=== PATIENT | female | born 1990 | race Caucasian/White ===

== ENCOUNTER 2025-01-17 17:01 | Outpatient (OUT) | payer OTHER, SELFPAY ==
--- NOTE | 2025-01-17 17:05 | US_ITS ---
The [address] [address] Patient Name: JUDAH CHO MRN: [id number] date: 1990 Sex: F Assigned Patient Location: US Current Patient Location: US Accession/Order Number: [id number] Exam Date: 01/17/2025 21:09 Report Date: 01/17/2025 21:12 At the request of: SHADE LERNER NP Procedure: US pelvis w/ transvaginal TRANSABDOMINAL AND TRANSVAGINAL PELVIC ULTRASOUND HISTORY: Lower abdominal pain for one week FINDINGS: The uterus measures 9.3 x 4.9 x 6.0 cm. No uterine lesion identified. The endometrium has a total combined thickness of 13mm. The RIGHT ovary measures 3.8 x 2.2 x 3.1 cm right ovary resistive index 0.45. LEFT ovary measures 4.7 x 3.3 x 3.5 cm left ovary resistive index of 0.51. Left ovary contains thin septated anechoic cysts that measure 4.4 x 2.3 x 2.8 cm. Bilateral ovarian blood flow identified. No free fluid identified. There is no adnexal mass identified. US/US pelvis w/ transvaginal IMPRESSION: 4.4 cm septated anechoic benign-appearing left ovarian cyst. Unremarkable right ovary uterus and endometrial complex. Impression dictated by: Sourav Catalan M.D.01/17/2025 9:12 PM Dictation Location: [place] [address] Electronically authenticated by: [id number] Y Date: 01/17/2025 21:12
== END 2025-01-17 17:02 | disposition home or self-care (01) ==
LOC: US 17:01
PROVIDERS: PCP Nurse Practitioner Family; Visit Provider Nurse Practitioner Family
DX: R10.30 Lower abdominal pain, unspecified (principal); R10.9 Unspecified abdominal pain; N83.202 Unspecified ovarian cyst, left side
CPT/HCPCS: 76830; 76856

== ENCOUNTER 2025-06-28 19:04 | Outpatient (REF) | payer OTHER, SELFPAY ==
--- OUTSIDE RECORDS SUMMARY | 2025-06-28 14:00 | XMS_ITS | Encounter Summary ---
Author Organization [facility] Address [address] [place] [address] Care Team Providers Care Head Banquet Waitress Name Role Phone Unavailable Primary Care Provider Unavailabl e Reason for Visit * Reason Comments Gynecologic Exam Encounter Details Date Type Department Care Team (Late st Contact Info) Description 06/28/2025 2:00 PM EDT Office Visit [facility] [address] [place] [phone] Audra Zepeda PA [address] [place] [address] Well woman exam with routine gynecological exam; PCOS (polycystic ovarian syndrome); Dysfunctional uterine bleeding Social History Tobacco Use Types Packs/Day Years Used Date Smoking Tobacco: Never Assessed Comments Unknown Sex and Gender Information Value Date Recorded Sex Assigned at Not on file Legal Sex Female 7:36 PM EDT Gender Identity Not on file Sexual Orientation Not on file documented as of this encounter Last Filed Vital Signs Vital Sign Reading Time Taken Comments Blood Pressure 122/76 06/28/2025 2:30 PM EDT Pulse - - Temperature - - Respiratory Rate - - Oxygen Saturation - - Inhaled Oxygen Concentration - - Weight 112 kg (247 lb 12.8 oz) 06/28/2025 2:30 P M EDT Height - - Body Mass Index - - documented in this encounter Progress Notes * ANDRES Solano - 06/28/2025 2:00 PM EDT Reason for Appointment: Patient ID: Ainsley Chavez is a 35 y.o. female who presents for Gynecologic Exam Patient presents today for Annual Exam. MEDICATIONS Current Outpatient Medications Medication Instructions desogestrel-ethinyl estradiol (Apri) 0.15-30 MG-MCG tablet 1 tablet, Oral, Daily, Take 1 tablet by mouth daily ibuprofen 800 mg, As needed lansoprazole (PREVACID) 30 mg, Oral, Daily before breakfast norethindrone-ethinyl estradiol (11/29) 1-20 MG-MCG tablet 1 tablet, Oral, Daily ALLERGIES Allergies Allergen Reactions Ciprofloxacin Shortness of breath Other Reaction(s): Breathing control PROBLEMS Active Ambulatory Problems Diagnosis Date Noted Well woman exam with routine gynecological exam 06/28/2025 Resolved Ambulatory Problems Diagnosis Date Noted No Resolved Ambulatory Problems No Additional Past Medical History HISTORY PAST MEDICAL HISTORY SOCIAL HISTORY No past medical history on file. Social History Tobacco Use Smoking status: Not on file Smokeless tobacco: Not on file Substance Use Topics Alcohol use: Not on file Drug use: Not on file FAMILY HISTORY Family History Problem Relation Name Age of Onset Breast cancer Paternal Grandmother Diabetes Paternal Grandmother Brain cancer Paternal Grandfather Lung cancer Paternal Grandfather SURGICAL HISTORY Past Surgical History: Procedure Laterality Date MYRINGOTOMY W/ TUBES TONSILLECTOMY REVIEW OF SYSTEMS Review of Systems: Review of Systems Constitutional: Negative. HENT: Negative. Eyes: Negative. Respiratory: Negative. Cardiovascular: Negative. Gastrointestinal: Negative. Genitourinary: Negative. Musculoskeletal: Negative. Skin: Negative. Neurological: Negative. All other systems reviewed and are negative. Hematological: Negative. Endocrine: Negative. Allergic/Immunologic: Negative. OBJECTIVE Objective: Physical Exam Constitutional: Appearance: Normal appearance. Genitourinary: Right Adnexa: not tender and no mass present. Left Adnexa: not tender and no mass present. No cervical discharge. Breasts: Breasts are soft. Right: Normal. Left: Normal. HENT: Head: Normocephalic. Nose: Nose normal. Mouth/Throat: Mouth: Mucous membranes are moist. Cardiovascular: Rate and Rhythm: Normal rate. Pulmonary: Effort: Pulmonary effort is normal. Abdominal: General: Bowel sounds are normal. Palpations: Abdomen is soft. Musculoskeletal: General: Normal range of motion. Cervical back: Normal range of motion. Neurological: General: No focal deficit present. Mental Status: She is alert. Skin: General: Skin is warm and dry. Psychiatric: Mood and Affect: Mood normal. Vitals and nursing note reviewed. Exam conducted with a radio engineer present. Vitals: There is no height or weight on file to calculate BMI. BP: 122/76 Patient's last menstrual period was 05/23/2025. ASSESSMENT & PLAN ICD-10-CM 1. Well woman exam with routine gynecological exam Z01.419 Pap Smear HPV DNA probe, amplified Annual Exam: Patient presents today for an annual exam. Patient states she is doing well and has no complaints. Pap was obtained without difficulty. Orders Placed This Encounter Procedures HPV DNA probe, amplified Follow Up: Patient is to return in one year for annual unless needed otherwise. Documented by Oliva Biggs LPN on behalf of: ANDRES Solano * Oliva Biggs LPN - 06/28/2025 2:00 PM EDT Discussed weight management with patient and patient to have PCOS labs drawn along with starting onMetformin. Patient to return to clinic in 4 weeks to review labs and discuss increasing Metformin. Patient voiced that she has tried Adipex in the past, but it did not help much. Patient to return toclinic in 4 weeks and medication sent to pharmacy on behalf of Audra Zepeda PA-C documented in this encounter Miscellaneous Notes * Addendum Note - Oliva Biggs LPN - 06/28/2025 2:00 PM EDTAddended by: OLIVA BIGGS on: 06/28/2025 03:07 PM Modules accepted: Orders documented in this encounter Plan of Treatment Upcoming Encounters Date Type Department Care Team (Late st Contact Info) Description 07/27/2025 9:30 AM EDT Office Visit [facility] [address] [place] [phone] Audra Zepeda PA [address] [place] [address] Scheduled Orders Name Type Priority Associated Diagnoses Orde r Schedule Pap Smear Pathology and Cytology Routine Well woman exam with routine gynecological exam Ordered: 06/28/2025 HPV DNA probe, amplified Microbiology Routine Well woman exam with routine gynecological exam Ordered: 06/28/2025 hCG, quantitative, Lab Routine PCOS (polycystic ovarian syndrome) Ordered: 06/28/2025 TSH Lab Routine PCOS (polycystic ovarian syndrome) Ordered: 06/28/2025 T4, free Lab Routine PCOS (polycystic ovarian syndrome) Ordered: 06/28/2025 CBC and differential Lab Routine PCOS (polycystic ovarian syndrome) Ordered: 06/28/2025 Follicle stimulating hormone Lab Routine PCOS (polycystic ovarian syndrome) Ordered: 06/28/2025 Luteinizing hormone Lab Routine PCOS (polycystic ovarian syndrome) Ordered: 06/28/2025 Hemoglobin A1c Lab Routine PCOS (polycystic ovarian syndrome) Ordered: 06/28/2025 DHEA-sulfate Lab Routine PCOS (polycystic ovarian syndrome) Ordered: 06/28/2025 DHEA Lab Routine PCOS (polycystic ovarian syndrome) Expected: 06/28/2025 (Approximate), Expires: 06/28/2026 documented as of this encounter Visit Diagnoses Diagnosis Well woman exam with routine gynecological exam Routine gynecological examination PCOS (polycystic ovarian syndrome) Polycystic ovaries Dysfunctional uterine bleeding Other disorder of menstruation and other abnormal bleeding from female genital tract documented in this encounter
--- OUTSIDE RECORDS SUMMARY | 2025-06-28 19:09 | XMS_ITS | Encounter Summary ---
Author Organization [facility] Address [address] [place] [address] Care Team Providers Care Lisw Name Role Phone Unavailable Primary Care Provider Unavailabl e Encounter Details Date Type Department Care Team (Late Contact Info) Description 06/28/2025 Bamboo flowsheet [facility] [address] [place] [phone] Audra Zepeda, PA [address] [place], [facility] Social History Tobacco Use Types Packs/Day Years Used Date Smoking Tobacco: Never Assessed Comments Unknown Sex and Gender Information Value Date Recorded Sex Assigned at Not on file Legal Sex Female 7:36 PM EDT Gender Identity Not on file Sexual Orientation Not on file documented as of this encounter Plan of Treatment Upcoming Encounters Date Type Department Care Team (Late st Contact Info) Description 07/27/2025 9:30 AM EDT Office Visit [facility] [address] [place] [phone] Audra Zepeda PA [address] [place], [facility] documented as of this encounter Visit Diagnoses Not on filedocumented in this encounter
--- OUTSIDE RECORDS SUMMARY | 2025-06-28 19:09 | XMS_ITS | Encounter Summary ---
Author Organization [facility] Address [address] [place] [address] Care Team Providers Care Ginseng Farmer Name Role Phone Unavailable Primary Care Provider Unavailabl e Encounter Details Date Type Department Care Team (Latest Contact Info) Description 06/27/2025 Travel Social History Tobacco Use Types Packs/Day Years [...] AM EDT Office Visit [facility] [address] [place] [address] Audra Zepeda PA [address] [place], [place] [id number] documented as of this encounter Visit Diagnoses Not on filedocumented in this encounter
--- OUTSIDE RECORDS SUMMARY | 2025-06-28 19:09 | XMS_ITS | Encounter Summary ---
Author Organization [facility] Address [address] [place] [address] Care Team Providers Care Master Sheet Clerk Name Role Phone Unavailable Primary Care Provider Unavailabl e Encounter Details Date Type Department Care Team (Late st Contact Info) Description 06/28/2025 Abstract [facility] [address] [place] [address] Ken Shannon DO [address] [facility] [address] [facility] [address] Hollie Blackmon, [facility] Social History Tobacco Use Types Packs/Day Years [...] AM EDT Office Visit [facility] [address] [place] [place] [address] Audra Zepeda PA [address] [facility] [address] [place], [facility] documented as of this encounter Visit Diagnoses Not on filedocumented in this encounter
--- OUTSIDE RECORDS SUMMARY | 2025-06-28 19:09 | XMS_ITS | Clinical Summary ---
Author Organization [facility] Address [address] [place] [address] Care Team Providers Care Coal Chute Worker Name Role Phone Unavailable Primary Care Provider Unavailabl e Allergies Active Allergy Reactions Criticality Noted Date Comments Ciprofloxacin Shortness of breath High 02/22/2025 Other Reaction(s): Breathing control Medications lansoprazole (Prevacid) [address] capsule Take 30 mg by mouth in the morning. Take before meals. Active ibuprofen 800 MG tablet Take 800 mg by mouth if needed 5 Active norethindrone-e thinyl estradiol (11/29) 1-20 MG-MCG tabletIndicatio ns:Cyst of left ovary,Irregular bleeding Take 1 tablet by mouth Daily 28 tablet 11 5 02/23/20 26 Active metFORMIN XR (Glucophage-XR) 500 MG 24 hr tabletIndicatio ns:PCOS (polycystic ovarian syndrome) Take 1 tablet (500 mg) by mouth in the evening. Take with meals 30 tablet 2 5 07/28/20 25 Active desogestrel-eth inyl estradiol (Apri) 0.15-30 MG-MCG tabletIndicatio ns:Dysfunctiona l uterine bleeding Take 1 tablet by mouth Daily 84 tablet 3 5 09/20/20 25 Active desogestrel-eth inyl estradiol (Apri) 0.15-30 MG-MCG tabletIndicatio ns:Dysfunctiona l uterine bleeding Take 1 tablet by mouth Daily for 28 days Take 1 tablet by mouth daily 28 tablet 11 5 06/28/20 25 Discontinu ed(Reorder ) Active Problems Problem Noted Date Diagnosed Date Well woman exam with routine gynecological exam 06/28/2025 Encounters Date Type Department Care Team Description 06/28/2025 2:00 PM EDT Office Visit [facility] [address] [facility] [place] [address] Audra Zepeda PA Well woman exam with routine gynecological exam; PCOS (polycystic ovarian syndrome); Dysfunctional uterine bleeding 06/28/2025 Abstract [facility] [address] [facility] [place] [address] Ken Shannon, 06/28/2025 Bamboo flowsheet [facility] [address] [facility] [place] [address] Audra Zepeda PA 06/27/2025 Travel from Last 3 Months Family History Medical History Relation Name Comments Brain cancer Paternal Grandfather Lung cancer Paternal Grandfather Breast cancer Paternal Grandmother Diabetes Paternal Grandmother Relation Name Status Comments Paternal Grandfather Paternal Grandmother Social History Tobacco Use Types Packs/Day Years Used Date Smoking Tobacco: Never Assessed Comments Unknown Sex and Gender Information Value Date Recorded Sex Assigned at Not on file Legal Sex Female 7:36 PM EDT Gender Identity Not on file Sexual Orientation Not on file Last Filed Vital Signs Vital Sign Reading Time Taken Comments Blood Pressure 122/76 06/28/2025 2:30 PM EDT Pulse - - Temperature - - Respiratory Rate - - Oxygen Saturation - - Inhaled Oxygen Concentration - - Weight 112 kg (247 lb 12.8 oz) 06/28/2025 2:30 P M EDT Height - - Body Mass Index - - Plan of Treatment Upcoming Encounters Date Type Department Care Team (Late st Contact Info) Description 07/27/2025 9:30 AM EDT Office Visit [facility] [address] [facility] [place] [phone] Audra Zepeda PA [address] [place] [address] Health Maintenance Due Date Last Done Comments Pap Smear 2011 Cervical Cancer Screening 2020 HPV/Cotest 2020 Influenza Vaccine (#1) 2025 09/27/2020 Insurance [employer]
--- OUTSIDE RECORDS SUMMARY | 2025-06-28 19:10 | XMS_ITS | CCD ---
Author Organization [facility] Care Team Providers Care Director Television Name Role Phone DR STANFORD STEPHENS Admitting Unavailable KAT, DR COYNE Attending Unavailable KAT, DR COYNE Consulting Unavailable KAT, DR COYNE Admitting Unavailable KAT, DR COYNE Attending Unavailable KAT, DR COYNE Consulting Unavailable KAT, DR COYEN Admitting Unavailable KAT, DR COYNE Attending Unavailable HOY, DR COYNE Consulting Unavailable YANN, GABRIELA Nicole Attending GABRIELA Cardona Attending UnavailBryce Meyers Attending Unavailable Unavailable Primary Care Provider HANNAH Alegre Attending Unavailable Allergies Allergy Classification Reported Allergen(s) Allergy Type Date of Onset Reaction(s) Facility (2 sources) Ciprofloxacin; Translations: [Cipro] Drug Allergy 6 [facility] Repository (5 sources) Ciprofloxacin Drug Allergy 5 Shortness of breath [facility] Medications Current Medications Medication Drug Class(es) Dates Sig (Normalized) Sig (Original) desogestrel 0.15 mg / ethinyl estradiol 0.03 mg oral tablet (3 sources) Progestin, Estrogen Start: 03-07-2025 take 1 tablet by mouth once daily, then take 1 tablet by mouth once daily desogestrel-ethinyl estradiol (Apri) 0.15-30 MG-MCG tablet Indications: Dysfunctional uterine bleeding Take 1 tablet by mouth Daily for 28 days Take 1 tablet by mouth daily 28 tablet 11 03/07/2025 Active Ethinyl Estradiol / Ferrous fumarate / Norethindrone (5 sources) Estrogen Start: 02-22-2025 End: 02-22-2026 norethindrone-ethin yl estradiol (11/29) 1-20 MG-MCG tablet Indications: Cyst of left ovary , Irregular bleeding Take 1 tablet by mouth Daily 28 tablet 11 02/22/2025 02/22/2026 Active ibuprofen 800 mg oral tablet (5 sources) Nonsteroidal Anti-inflammatory Drug Start: 01-11-2025 ibuprofen 800 MG tablet Take 800 mg by mouth if needed 01/11/2025 Active lansoprazole 15 mg delayed release oral capsule (5 sources) Proton Pump Inhibitor take 2 capsules by mouth before mealtime lansoprazole (Prevacid) [address] capsule Take 30 mg by mouth in the morning. Take before meals. Active Completed/Discontinued Medications Medication Drug Class(es) Dates Sig (Normalized) Sig (Original) Ethinyl Estradiol / norgestimate (2 sources) Progestin, Estrogen Start: 12-16-2024 End: 02-22-2025 take 1 tablet by mouth once daily norgestimate-ethiny l estradiol (Ortho Tri-Cyclen,Trinessa ) 0.18/0.215/0.25 MG-35 MCG tablet Take 1 tablet by mouth Daily 12/16/2024 02/22/2025 Discontinued (Ineffective) Problems Active Problems Problem Classification Problem Date Documented Da te Episodic/Chronic Abdominal pain (2 sources) Pain in female pelvis; Translations: [Pelvic and perineal pain] 02-22-2025 Episodic Menstrual disorders (2 sources) Irregular periods; Translations: [Irregular menstruation, unspecified] 02-22-2025 Chronic Ovarian cyst (2 sources) Cyst of left ovary; Translations: [Unspecified ovarian cyst, left side] 02-22-2025 Episodic Unclassified (3 sources) COUGH, UNSPECIFIED; Translations: [COUGH, UNSPECIFIED] Onset: 08-28-2022 Unclassified (3 sources) CONTACT W/AND (SUSP) EXPOS COVID-19; Translations: [CONTACT W/AND (SUSP) EXPOS COVID-19] Onset: 11-08-2021 Viral infection (1 source) COVID-19; Translations: [COVID-19] Onset: 11-08-2021 Past or Other Problems Problem Classification Problem Date Documented Da te Episodic/Chronic Other upper respiratory infections (5 sources) Acute sinusitis, unspecified; Translations: [ACUTE SINUSITIS UNSPECIFIED] Onset: 11-08-2021 Episodic Unclassified (1 source) COUGH, UNSPECIFIED; Translations: [COUGH, UNSPECIFIED] Onset: 08-26-2022 Unclassified (1 source) CONTACT W/AND (SUSP) EXPOS COVID-19; Translations: [CONTACT W/AND (SUSP) EXPOS COVID-19] Onset: 11-01-2021 Results Test Name Value Interpretation Reference Range Facility Urinalysis macro (dipstick) panel (U)on 02-22-2025 Bilirubin, UA Negative Negative - 4(70) +++ mg/dL [facility] Blood, UA Negative Negative - 50 Papo/mcL [facility] Clarity, UA Clear [facility] Color, UA Yellow [facility] Glucose, UA Negative Negative - 2000(110) ++++ mg/dL [facility] Interpretation and review of laboratory results Abnormal [facility] Ketones, UA Positive Negative - 160(16) ++++ mg/dL [facility] Comment on above: trace Leukocytes, UA Negative Negative - 500+++ Dixie/mcL [facility] Nitrite, UA Negative Negative - Positive [facility] pH, UA 5.5 5 - 9 [facility] Protein, UA Negative Negative - 2000(20) ++++ mg/dL [facility] Spec Grav, UA 1.025 1 - 1.03 [facility] Urobilinogen, UA 1.0 0.2 - 12 mg/dL [facility] Family Medicine Office/Clini c Noteon 01-13-2025 Family Medicine Office/Clinic Note Family Medicine Office/Clinic Note Chief Complaint Persistent abdominal pain rated at 3 on a scale of 0 to 10. [facility] Staff Judah is a 34 year old female stomach pain and discomfort Onset: Friday, middle of the night she was waken by cramps... off and on No loss of appetite BM are normal pain less painful when sitting worse when standing, pain in lower back She took Motrin did not help History of Present Illness 34-year-old female patient presenting with abdominal pain. The pain commenced abruptly, initially feeling like cramping unrelated to her menstrual cycle, with intermittent recurrence throughout the day. She described accompanying lower back pain but no disordered bowel movement association. The abdominal pain localizes in the pubic area, sometimes extending to the umbilical region, causing discomfort but is presently rated as a tolerable 3/10. A previous more intense episode made her nauseous. The patient sought relief with an 800 mg dose without effect. Physical activities include heavy weightlifting, yet no exercise-related pain was noted. The patient's menstrual cycles, previously irregular, have stabilized following weight loss. The last pelvic exam and Pap test date back over three years, reflecting a delay in preventative gynecological healthcare post-transition to a new provider. No significant changes in bowel habits were reported, with a normal bowel movement recorded earlier in the day of the visit. Review of Systems PHQ Score Initial Depression Screen Score: 0 SCORE - Gastrointestinal: Reports normal bowel movements; no recent issues. - Genitourinary: Denies recent pelvic exam; describes periods as normalized post-weight loss. Physical Exam Vitals & Measurements T: 36.4 ???C(Oral) HR: 76(Peripheral) RR: 20 BP: 140/88 SpO2: 100% HT: 71 in HT: 180.3 cm WT: 113.8 kg WT: 250.886 lb BMI: 35.01 General: alert, no acute distress Skin: warm, dry Cardiovascular: regular rate and rhythm, normal peripheral perfusion Respiratory: Lungs CTA, respirations non labored Gastrointestinal: Tenderness noted upon palpation across the noted area in the pubic region. No other regions affected during examination. Back: Mild tenderness, Normal ROM, Normal alignment. Assessment/Plan 1. Abdominal pain in female, (R10.9: Unspecified abdominal pain)Stomach discomfort Recommend a transvaginal ultrasound to assess potential gynecological etiologies, complementing symptomatic observation and management. Ordered: Urnls Dip Stick Auto w/o Microscopy POC 05532 US Pelvis Non-OB Complete 3. Non-smoker (Z78.9: Other specified health status) The patient???s status as a non-smoker is beneficial; no further management required. 4. BMI 34.0-34.9,adult (Z68.34: Body mass index [BMI] 34.0-34.9, adult) Emphasize weight management through ongoing physical exercise and dietary adjustments. Follow-up No qualifying data available Patient Education Round Ligament Pain Problem List/Past Medical History Ongoing Excessive dietary caloric intake GERD without esophagitis Knee pain, left Sinusitis Historical No qualifying data Procedure/Surgical History Fracture, T and A (tonsillectomy and adenoidectomy) postoperative education. Medications Denta 5000 Plus topical cream ethinyl estradiol-norgestim ate triphasic 35 mcg Tab, See Instructions hydrOXYzine pamoate 25 mg Cap, See Instructions ibuprofen 800 mg Tab, See Instructions Immodium A-D 2 mg Tab, 2 mg= 1 tab(s), Oral, q4hr, PRN lansoprazole 30 mg Cap-DR, See Instructions ondansetron 4 mg Tab, See Instructions triamcinolone Top 0.1% Crm 15 gram, See Instructions Allergies Cipro (Breathing control) Social History Alcohol Never., 01/13/2025 Substance Abuse Never., 01/13/2025 Tobacco Never (less than 100 in lifetime) Tobacco Use:., 01/13/2025 Family History Acute myocardial infarction: Grandparent. Diabetes mellitus type 1: Grandparent. Drug addiction: Sister and Brother. Stroke: Father. Immunizations Vaccine Date Status Comments influenza virus vaccine, inactivated - Not Given Postpone due to refusal SARS-CoV-2 (COVID-19) mRNA BNT-162b2 vax 04/21/2021 Recorded 2023-07-30: TPVAL SARS-CoV-2 (COVID-19) mRNA BNT-162b2 vax 04/01/2021 Recorded 2023-07-30: TPVAL influenza, unspecified formulation 09/27/2020 Recorded measles/mumps/rubel la virus vaccine 03/23/2002 Recorded DTaP, unspecified formulation 04/02/1995 Recorded measles/mumps/rubel la virus vaccine 10/20/1991 Recorded Lab Results Ambulatory Point of Care Results Bilirubin Urine Dipstick: Negative (01/13/25 15:59:00) Blood Urine Dipstick: Negative (01/13/25 15:59:00) Glucose Urine Dipstick: Negative (01/13/25 15:59:00) Ketones Urine Dipstick: Negative (01/13/25 15:59:00) Leukocytes Urine Dipstick: Negative (01/13/25 15:59:00) Nitrite Urine Dipstick: Negative (01/13/25 15:59:00) Protein Urine Dipstick: 1+ (30 mg/dl) (01/13/25 15:59:00) Specific Ada Urine D (more content not included)... Normal [facility] Comment on above: Result Comment: Elec tronically Signed By: SHADE LERNER CNP\guillermo\Date and Time Signed: 01/13/25 16:23 EST Ambulatory Visit Summaryon 0 04-27-2024 Ambulatory Visit Summary JUDAH CHAVEZ DOB:1990 Visit Date:04/27/2024 Ambulatory Visit Instructions Your Diagnosis BMI 35.0-35.9,adult Class 1 obesity due to excess calories in adult Nonsmoker Your Care Team Attending Physician - SHADE LERNER CNP Primary Care Physician - Bryce Early MD This Is Your Medications List ethinyl estradiol-norgestim ate (ethinyl estradiol-norgestim ate triphasic 35 mcg Tab) hydrOXYzine (hydrOXYzine pamoate 25 mg Cap) ibuprofen (ibuprofen 800 mg Tab) lansoprazole (lansoprazole 30 mg Cap-DR) ondansetron (ondansetron 4 mg Tab) triamcinolone topical (triamcinolone Top 0.1% Crm 15 gram) Procedures Performed Fracture, T and A (tonsillectomy and adenoidectomy) postoperative education. Medications What How Much When Instructions Unchanged ethinyl estradiol-norgestim ate (ethinyl estradiol-norgestim ate triphasic 35 mcg Tab) See instructions TAKE 1 TABLET BY MOUTH EVERY DAY Unchanged hydrOXYzine (hydrOXYzine pamoate 25 mg Cap) See instructions TAKE 1 CAPSULE BY MOUTH TWICE A DAY NEEDED Unchanged ibuprofen (ibuprofen 800 mg Tab) See instructions TAKE 1 TABLET BY MOUTH FOUR TIMES A DAY NEEDED Unchanged lansoprazole (lansoprazole 30 mg Cap-DR) See instructions TAKE 1 CAPSULE BY MOUTH EVERY DAY Unchanged ondansetron (ondansetron 4 mg Tab) See instructions TAKE 1 TABLET BY MOUTH EVERY 8 HOURS Unchanged triamcinolone topical (triamcinolone Top 0.1% Crm 15 gram) See instructions APPLY TO AFFECTED AREA TWICE WEEKLY Allergies Cipro (Breathing control) Problems Ongoing - Any problem that you are currently receiving treatment for. Excessive dietary caloric intake GERD without esophagitis Knee pain, left Sinusitis Patient Survey You may receive a survey via text or e-mail asking about your office visit. Please share your experience with us by completing your survey. We appreciate your feedback and thank you for choosing us for your care. [facility] Family Medicine Office/Clini c Noteon 04-27-2024 Family Medicine Office/Clinic Note HPI Staff complaints of fever, headache, vomiting and abdominal pain_ Onset: Characteristics: OTC tried: History of Present Illness 33 [address] old patient of Dr. Early presents for an acute visit for evaluation of fever, headache, abdominal pain, & vomiting. She reports she left work yesterday around noon because she was not feeling well. She reports she vomited after eating her lunch at home and this was around 1:30 pm yesterday and she took a Zofran at that time. She reports no further emesis. She reports she had some chills around 6-7 PM last night and she took her temperature and it was 102.5. She reports she took two Advil and her temperature came down till about 12 AM today. She took some more acetaminophen and at 3 AM her temperature was 98. She reports she took some more acetaminophen around 7 AM and today in the office her temperature is 98.2. She reports since she got up this AM she has had some diarrhea with abdominal pain. She ate a banana this AM and she has been able to keep that down. Review of Systems PHQ Score Initial Depression Screen Score: 0 SCORE Constitutional: no fever, no chills, no sweats, no weakness Skin: no Jaundice, no rash, no lesions, nopetechiae ENMT: no ear pain, no sore throat, no congestion, no hoarseness Respiratory: no shortness of breath, no cough, no orthopnea, no wheezing Cardiovascular: no chest pain, no palpitations, no edema Gastrointestinal: no nausea, no vomiting, no diarrhea, no GI bleeding Genitourinary: no dysuria, no hematuria, no discharge, no pain Musculoskeletal: no back pain, no trauma Neurologic: no headache, no dizziness, no numbness, no weakness Psychiatric: no sleeping problems, no irritability, no mood swings/depression. Heme/Lymph: no bleeding tendency, no bruising tendency, no petechiae, no swollen nodes Allergy/Immunologic : no seasonal allergies, no food allergies, no recurrent infections, no impaired immunity Additional ROS info: Except as noted in the above Review of Systems and in the History of Present Illness all other systems have been reviewed and are negative or noncontributory. Physical Exam Vitals & Measurements T: 36.8 ?C(Oral) HR: 104(Peripheral) BP: 118/76 SpO2: 98% HT: 71 in HT: 180.3 cm WT: 110.9 kg WT: 243.98 lb BMI: 34.11 General: alert, no acute distress Skin: warm, dry Head: no trauma, normocephalic Neck: Trachea midline, no adenopathy, no tenderness Eye: normal conjunctiva, sclera clear ENMT: TM's clear, oral mucosa moist, no pharyngeal erythema or exudate Cardiovascular: regular rate and rhythm, normal peripheral perfusion Respiratory: Lungs CTA, respirations non labored Gastrointestinal: soft, non distended, mild epigastric tenderness, no guarding. Back: No tenderness, Normal ROM, Normal alignment. Extremities: no deformity, no trauma Neurological: oriented x 4, LOC appropriate for age speech normal Psychiatric: cooperative, affect appropriate for age, normal judgement, normal psychiatric thoughts. Assessment/Plan 1. Gastritis (K29.70: Gastritis, unspecified, without bleeding) Patient has zofran and she is encouraged to take as needed for nausea & vomiting. Encouraged to drink plenty of fluids- may use gatorade Note completed for employer f/u if no improvement in 3-5 days Ordered: loperamide, 2 mg = 1 tab(s), Oral, q4hr, PRN for loose stool, not to exceed 8 capsules, or 16 mg, in 24 hours, # 60 tab(s), Refills(s) 0, Pharmacy: [facility]/pharmacy #[id number], 180.3, cm, 01/27/24 11:32:00 EDT, Height/Length Dosing, 114.5, kg, 01/27/24 11:32:00 EDT, Weigh... 2. BMI 35.0-35.9,adult (Z68.35: Body mass index [BMI] 35.0-35.9, adult) The standard range for ages 18 and older is >=18.5 and < 25 kg/m2. Your BMI today was above this range, this falls in the overweight to obese category and there are medical benefits to weight loss. We can offer counselling, referral, and/or medical support in addressing this problem. Your BMI and weight management will be followed at subsequent visits. She has lost 7.92 pounds since her last visit Encouraged daily exercise and portion control 3. Class 1 obesity due to excess calories in adult (E66.09: Other obesity due to excess calories) The standard range for ages 18 and older is >=18.5 and < 25 kg/m2. Your BMI today was above this range, this falls in the overweight to obese category and there are medical benefits to weight loss. We can offer counselling, referral, and/or medical support in addressing this problem. Your BMI and weight management will be followed at subsequent visits. She has lost 7.92 pounds since her last visit Encouraged daily exercise and portion control 4. Nonsmoker (Z78.9: Other specified health status) Continue as a non-smoker Follow-up No qualifying data available Patient Education Gastritis, Adult, Ongt-lz-Iulf Problem List/Past Medical History Ongoing Excessive dietary caloric intake GERD without esophagitis Knee pain, left Sinusitis Historical No (more content not included)... Normal [facility] Comment on above: Result Comment: Elec tronically Signed By: SHADE LERNER CNP\.br\Date and Time Signed: 04/27/24 12:48 EDT Patient Educationon 04-27-20 Patient Education Infectious Disease Gastritis, Adult Gastritis is irritation and swelling (inflammation) of the stomach. There are two kinds of gastritis: ? Acute gastritis. This kind develops quickly. ? Chronic gastritis. This kind is much more common. It develops slowly and lasts for a long time. It is important to get help for this condition. If you do not get help, your stomach can bleed, and you can get sores (ulcers) in your stomach. What are the causes? This condition may be caused by: ? Germs that get to your stomach and cause an infection. ? Drinking too much alcohol. ? Medicines you are taking. ? Having too much acid in the stomach. ? Having a disease of the stomach. Other causes may include: ? An allergic reaction. ? Some cancer treatments (radiation). ? Smoking cigarettes or using products that contain nicotine or tobacco. In some cases, the cause of this condition is not known. What increases the risk? ? Having a disease of the intestines. ? Having Crohn's disease. ? Using aspirin or ibuprofen and other NSAIDs to treat other conditions. ? Stress. What are the signs or symptoms? ? Pain in your stomach. ? A burning feeling in your stomach. ? Feeling like you may vomit (nauseous). ? Vomiting or vomiting blood. ? Feeling too full after you eat. ? Weight loss. ? Bad breath. ? Blood in your poop (stool). In some cases, there are no symptoms. How is this treated? This condition is treated with medicines. The medicines that are used depend on what caused the condition. You may be given: ? Antibiotic medicine, if your condition was caused by an infection from germs. ? H2 blockers and similar medicines, if your condition was caused by too much acid in the stomach. Treatment may also include stopping the use of certain medicines, such as aspirin or ibuprofen. Follow these instructions at home: Medicines ? Take sysh-adv-pashrbo and prescription medicines only as told by your doctor. ? If you were prescribed an antibiotic medicine, take it as told by your doctor. Do not stop taking it even if you start to feel better. Alcohol use ? Do not drink alcohol if: ? Your doctor tells you not to drink. ? You are , may be , or are planning to become . ? If you drink alcohol: ? Limit your use to: ? 0?1 drink a day for women. ? 0?2 drinks a day for men. ? Know how much alcohol is in your drink. In the [place] one drink equals one 12 oz bottle of beer (355 mL), one 5 oz glass of wine (148 mL), or one 1? oz glass of hard liquor (44 mL). General instructions ? Eat small meals often, instead of large meals. ? Avoid foods and drinks that make you feel worse. ? Drink enough fluid to keep your pee (urine) pale yellow. ? Talk with your doctor about ways to manage stress. You can exercise or do deep breathing, meditation, or yoga. ? Do not smoke or use any products that contain nicotine or tobacco. If you need help quitting, ask your doctor. ? Keep all follow-up visits. Contact a doctor if: ? Your symptoms get worse. ? Your stomach pain gets worse. ? Your symptoms go away and then come back. ? You have a fever. Get help right away if: ? You vomit blood or something that looks like coffee grounds. ? You have black or dark red poop. ? You throw up any time you try to drink fluids. These symptoms may be an emergency. Get help right away. Call your local emergency services (911 in the [place] ? Do not wait to see if the symptoms will go away. ? Do not drive yourself to the hospital. Summary ? Gastritis is irritation and swelling (inflammation) of the stomach. ? You must get help for this condition. If you do not get help, your stomach can bleed, and you can get sores (ulcers) in your stomach. ? You can be treated with medicines for germs or medicines to block too much acid in your stomach. This information is not intended to replace advice given to you by your health care provider. Make sure you discuss any questions you have with your health care provider. Document Revised: 03/02/2022 Document Reviewed: 03/02/2022 Elsevier Patient Education ? 2022 ItsOn. [facility] Provider Letteron 04-27-2024 Provider Letter April 27, 2024 JUDAH CHAVEZ [address] [place] [id number] : 1990 To Whom It May Concern, Please excuse above patient from work. Date of Illness: From: _04-26-24 To: _ 04-27-24 May Return to Work On: 04-28-24 Restrictions: _ Comments: _ Sincerely, [place] [address] [facility] Ambulatory Visit Summaryon 0 01-27-2024 Ambulatory Visit Summary JUDAH CHAVEZ :1990 Visit Date:01/27/2024 Ambulatory Visit Instructions Your Diagnosis Sinusitis BMI 35.0-35.9,adult Class 1 obesity due to excess calories in adult Nonsmoker Your Care Team Attending Physician - Bryce Early MD. Primary Care Physician - Bryce Early MD. This Is Your Medications List ethinyl estradiol-norgestim ate (ethinyl estradiol-norgestim ate triphasic 35 mcg Tab) hydrOXYzine (hydrOXYzine pamoate 25 mg Cap) ibuprofen (ibuprofen 800 mg Tab) lansoprazole (lansoprazole 30 mg Cap-DR) triamcinolone topical (triamcinolone Top 0.1% Crm 15 gram) Procedures Performed Fracture, T and A (tonsillectomy and adenoidectomy) postoperative education. Discharge Vitals Temperature (Temporal Artery) 37.0 ?C Heart Rate (Peripheral) 90 Respiratory Rate 18 Blood Pressure 120/78 Height 180.3 cm Height 71 in Weight 114.5 kg Weight 251.9 lb BMI 35.22 Medications What How Much When Instructions Unchanged ethinyl estradiol-norgestim ate (ethinyl estradiol-norgestim ate triphasic 35 mcg Tab) Unchanged hydrOXYzine (hydrOXYzine pamoate 25 mg Cap) See instructions TAKE 1 CAPSULE BY MOUTH TWICE A DAY NEEDED Unchanged ibuprofen (ibuprofen 800 mg Tab) See instructions TAKE 1 TABLET BY MOUTH FOUR TIMES A DAY NEEDED Unchanged lansoprazole (lansoprazole 30 mg Cap-DR) 1 Capsules By Mouth Every day Unchanged triamcinolone topical (triamcinolone Top 0.1% Crm 15 gram) See instructions APPLY TO AFFECTED AREA TWICE WEEKLY Allergies Cipro (Breathing control) Problems Ongoing - Any problem that you are currently receiving treatment for. Excessive dietary caloric intake GERD without esophagitis Knee pain, left Sinusitis Patient Survey You may receive a survey via text or e-mail asking about your office visit. Please share your experience with us by completing your survey. We appreciate your feedback and thank you for choosing us for your care. Normal [facility] Family Medicine Office/Clini c Noteon 01-27-2024 Family Medicine Office/Clinic Note HPI Staff Judah is a 33 year old female presenting for sick visit Acute: congestion and headache _Respiratory C/O: Duration: 2 days ago Body aches: no Chest congestion: yesa little Chills: no Cough: yesa little Ear complaints: yes both ears plugged up some Eye itching/watering: yes watery Fever: no Headache: yes Nasal congestion: yes Nasal discharge: yes a little yellow but clear now Poor appetite: no Reduced activity: no Sinus pain/pressure: yes pressure Sneezing: no Sputum production: yes a little yellow in color Wheezing: no Ill contacts: yes mother unsure what she was diagnosed with given a zpak Remedies tried: saline nasal spray, tylenol _ _ flu: doesn't take them History of Present Illness - See staff HPI. Review of Systems PHQ Score Initial Depression Screen Score: 0 SCORE Physical Exam Vitals & Measurements T: 37.0 ?C(Temporal Artery) HR: 90(Peripheral) RR: 18 BP: 120/78 SpO2: 99% HT: 71 in HT: 180.3 cm WT: 114.5 kg WT: 251.9 lb BMI: 35.22 General: alert, no acute distress ENMT: oral mucosa moist, Nasal congestion. Cardiovascular: regular rate and rhythm, normal peripheral perfusion Respiratory: Lungs CTA, respirations non labored Extremities: no deformity, no trauma Neurological: oriented x 4, LOC appropriate for age, CN II-XII intact, motor strength equal & normal bilaterally, speech normal Abdomen: Soft, Nontender, Non-distended, + BS Assessment/Plan 1. Sinusitis (J32.9: Chronic sinusitis, unspecified) - Will do a medrol dose masoud - OTC meds. - If no improvement, Zpack - Covid/Flu is negative 2. BMI 35.0-35.9,adult (Z68.35: Body mass index [BMI] 35.0-35.9, adult) - BMI education uploaded 3. Class 1 obesity due to excess calories in adult (E66.09: Other obesity due to excess calories) - Diet and exercise advised 4. Nonsmoker (Z78.9: Other specified health status) - Please continue to not smoke. Follow-up No qualifying data available Problem List/Past Medical History Ongoing Excessive dietary caloric intake GERD without esophagitis Knee pain, left Sinusitis Historical No qualifying data Procedure/Surgical History Fracture, T and A (tonsillectomy and adenoidectomy) postoperative education. Medications ethinyl estradiol-norgestim ate triphasic 35 mcg Tab hydrOXYzine pamoate 25 mg Cap, See Instructions ibuprofen 800 mg Tab, See Instructions lansoprazole 30 mg Cap-DR, 30 mg= 1 cap(s), Oral, Daily, 1 refills triamcinolone Top 0.1% Crm 15 gram, See Instructions, Self Directed Allergies Cipro (Breathing control) Social History Tobacco Never (less than 100 in lifetime) Tobacco Use:. Never Smokeless Tobacco Use:., 01/27/2024 Family History Acute myocardial infarction: Grandparent. Diabetes mellitus type 1: Grandparent. Drug addiction: Sister and Brother. Stroke: Father. Immunizations Vaccine Date Status Comments influenza virus vaccine, inactivated - Not Given Postpone due to refusal SARS-CoV-2 (COVID-19) mRNA BNT-162b2 vax 04/21/2021 Recorded 2023-07-30: TPVAL SARS-CoV-2 (COVID-19) mRNA BNT-162b2 vax 04/01/2021 Recorded 2023-07-30: TPVAL influenza, unspecified formulation 09/27/2020 Recorded measles/mumps/rubel la virus vaccine 03/23/2002 Recorded DTaP, unspecified formulation 04/02/1995 Recorded measles/mumps/rubel la virus vaccine 10/20/1991 Recorded Normal [facility] Comment on above: Result Comment: Elec tronically Signed By: Sharath GOLDBERG, Bryce Benton.panfilo\Date and Time Signed: 01/27/24 11:53 EDT Covid-19 PCR (CVDTB)on 08-10 SARS-CoV-2 (COVID-19) RNA ENRIQUE+probe Ql (Unsp spec) Not detected Normal NOT DETECTED [facility] Comment on above: Result Comment: When diagnostic testing is negative, the possibility of a false negative should be considered in the context of a patient's recent exposures and the presence of clinical signs and symptoms consistent with SARS-CoV-2. This test is not yet approved or cleared by the [place] FDA. When there are no FDA-approved or cleared tests available, and other criteria are met, FDA can make tests available under an emergency access mechanism called an Emergency Use Authorization (EUA). The EUA for this test is supported by the [place] of Health and Human Service's declaration that circumstances exist to justify the emergency use of in vitro diagnostics for the detection and/or diagnosis of the virus that causes COVID-19. This EUA will remain in effect for the duration of the COVID-19 declaration justifying emergency of IVDs, unless it is terminated or revoked by the FDA (after which the test may no longer be used). Performed By: #### [facility] #### [facility] [address] [place] [address] Dr. Aster Black Covid-19 PCR (CVDTB)on 01-09 SARS-CoV-2 (COVID-19) RNA ENRIQUE+probe Ql (Unsp spec) Not detected Normal NOT DETECTED [facility] Comment on above: Result Comment: When diagnostic testing is negative, the possibility of a false negative should be considered in the context of a patient's recent exposures and the presence of clinical signs and symptoms consistent with SARS-CoV-2. This test is not yet approved or cleared by the [place] FDA. When there are no FDA-approved or cleared tests available, and other criteria are met, FDA can make tests available under an emergency access mechanism called an Emergency Use Authorization (EUA). The EUA for this test is supported by the [place] of Health and Human Service's declaration that circumstances exist to justify the emergency use of in vitro diagnostics for the detection and/or diagnosis of the virus that causes COVID-19. This EUA will remain in effect for the duration of the COVID-19 declaration justifying emergency of IVDs, unless it is terminated or revoked by the FDA (after which the test may no longer be used). Performed By: #### C [facility] #### [facility] [address] [place] [address] Dr. Aster Black INFLUENZA A AND B AGon 01-28 [facility] SEE BELOW Normal [facility] Comment on above: Result Comment: Nega tive for Flu A protein angiten. Infection due to Flu A cannot be ruled out. Flu A angiten in the sample may be below the detection limit of the test. Performed By: #### I [facility] #### [facility] [address] [place] [address] Dr. Aster [facility] SEE BELOW Normal [facility] Comment on above: Result Comment: Nega tive for Flu B protein antigen. Infection due to Flu B cannot be ruled out. Flu B antigen in the sample may be below the detection limit of the test. Performed By: #### I [facility] #### [facility] [address] [place] [address] Dr. Aster Black INFLUENZA A AG Negative Normal NEGATIVE SEE COMMENT [facility] Comment on above: Performed By: #### I [facility] #### [facility] [address] [place] [address] Dr. Aster Black INFLUENZA B AG Negative Normal NEGATIVE SEE COMMENT [facility] Comment on above: Performed By: #### I [facility] #### [facility] [address] [place] [address] Dr. Aster Black INTERNAL CONTROLS Within Normal Limits Normal Within Normal Limits [facility] Comment on above: Performed By: #### I [facility] #### [facility] [address] [place] [address] Dr. Aster Black Covid-[facility] PCR [facility])on 10-11 SARS-CoV-2 (COVID-19) RNA ENRIQUE+probe Ql (Unsp spec) Detected Critically abnormal NOT DETECTED [facility] Comment on above: Result Comment: This test is not yet approved or cleared by the [place] FDA. When there are no FDA-approved or cleared tests available, and other criteria are met, FDA can make tests available under an emergency access mechanism called an Emergency Use Authorization (EUA). The EUA for this test is supported by the [place] of Health and Human Service's (HHS's) declaration that circumstances exist to justify the emergency use of in vitro diagnostics for the detection and/or diagnosis of the virus that causes COVID-19. This EUA will remain in effect (meaning this test can be used) for the duration of the COVID-19 declaration justifying emergency of IVDs, unless it is terminated or revoked by FDA (after which the test may no longer be used). Performed By: #### C [facility] #### [facility] [address] [place] [address] Dr. Aster Black INFLUENZA A AND B AGon 11-01 [facility] SEE BELOW Normal [facility] Comment on above: Result Comment: Nega tive for Flu A protein angiten. Infection due to Flu A cannot be ruled out. Flu A angiten in the sample may be below the detection limit of the test. Performed By: #### I [facility] #### [facility] [address] [address] [address] Aster Black [facility] SEE BELOW Normal [facility] Comment on above: Result Comment: Nega tive for Flu B protein antigen. Infection due to Flu B cannot be ruled out. Flu B antigen in the sample may be below the detection limit of the test. Performed By: #### I [facility] #### [facility] [address] [place] [address] Dr. Aster Black INFLUENZA A AG Negative Normal NEGATIVE SEE COMMENT [facility] Comment on above: Performed By: #### I NFLU[facility] #### [facility] [address] [place], [place] [address] Dr. Aster Black INFLUENZA B AG Negative Normal NEGATIVE SEE COMMENT [facility] Comment on above: Performed By: #### I [facility] #### [facility] [address] [place], [place] [address] Dr. Aster Black INTERNAL CONTROLS Within Normal Limits Normal Within Normal Limits [facility] Comment on above: Performed By: #### I NFLU[facility] #### [facility] [address] [place], [place] [address] Dr. Aster Black Vital Signs Date Time Vital Sign Value Performing Clinician Faci lity 06-28-2025 14:30-0400 Body weight 112.4 kg Audra CAMPOS Work Phone: [facility] 06-28-2025 14:30-0400 Diastolic blood pressure 76 mm[Hg] Audra CAMPOS Work Phone: [facility] 06-28-2025 14:30-0400 Systolic blood pressure 122 mm[Hg] Audra CAMPOS Work Phone: [facility] 02-22-2025 13:51-0400 Body weight 112.22 kg Hannah Mirtha DO Work Phone: [facility] 02-22-2025 13:51-0400 Diastolic blood pressure 74 mm[Hg] Hannah Mirtha DO Work Phone: [facility] 02-22-2025 13:51-0400 Systolic blood pressure 112 mm[Hg] Hannah Mirtha DO Work Phone: [facility] Healthcare Encounters Encounter Date Encounter Type Care Provider Facility Start: 06-28-2025 End: 06-28-2025 Bamboo flowsheet Audra CAMPOS Work Phone: [facility] Start: 06-28-2025 End: 06-28-2025 Bamboo flowsheet Audra CAMPOS Work Phone: [facility] Start: 06-28-2025 End: 06-28-2025 Patient encounter procedure Audra CAMPOS Work Phone: [facility] Start: 06-28-2025 End: 06-28-2025 Periodic preventive med est patient 18-39 yrs Audra CAMPOS Work Phone: [facility] Comment on above: Well woman exam with routine gynecological exam Start: 02-22-2025 End: 02-22-2025 Bamboo flowsheet Hannah Mirtha DO Work Phone: [facility] Start: 02-22-2025 End: 02-22-2025 Bamboo flowsheet Hannah Mirtha DO Work Phone: [facility] Start: 02-22-2025 End: 02-22-2025 Office outpatient visit 15 minutes Hannah Mirtha DO Work Phone: [facility] Comment on above: Pelvic pain in femal e; Cyst of left ovary; Irregular bleeding Start: 02-22-2025 End: 02-22-2025 ambulatory HANNAH MIRTHA Not Available Start: 01-13-2025 End: 01-13-2025 ambulatory GABRIELA LERNER Facility: [facility] Start: 04-27-2024 End: 04-27-2024 ambulatory GABRIELA LERNER Facility: [facility] Start: 01-27-2024 End: 01-27-2024 ambulatory Bryce Early Facility: [facility] Start: 08-26-2022 End: 08-26-[address] STANFORD STEPHENS Facility:[facility] Start: 01-28-2022 End: 01-28-[address] STANFORD STEPHENS Facility:[facility] Start: 11-01-2021 End: 11-01-[address] STANFORD STEPHENS Facility:[facility] Procedures Date Procedure Procedure Detail Performing Clinician Start: 02-22-2025 Urnls dip stick/tabl et rgnt non-auto w/o micrscp Hannah Mirtha DO Work Phone: Plan of Treatment Date Care Activity Detail Author Start: 07-11-2025 Influenza vaccination [facility] Start: 06-28-2025 End: 06-28-2025 Patient encounter procedure 06/28/2025 2:00 PM EDT Office Visit [facility] [address] [place] [id number] Audra Zepeda PA [address] [place], [place] [id number] Arrived [facility] Comment on above: Arrived Start: 05-25-2025 End: 05-25-2025 Patient encounter procedure 05/25/2025 2:40 PM EDT Office Visit [facility] [address] [place] [address] Hannah Shannon, [address] [place], [place] [id number] [facility] Start: 02-22-2025 End: 08-24-2025 US Pelvis transvaginal US pelvis transvaginal Imaging Routine Pelvic pain in female Cyst of left ovary Irregular bleeding Expected: 02/22/2025, Expires: 08/24/2025 [facility] Work Phone: Comment on above: Expected: 02/22/2025 , Expires: 08/24/2025 Start: 02-22-2025 End: 02-22-2025 Patient encounter procedure 02/22/2025 1:40 PM EDT Office Visit [facility] [address] [place] [address] Hannah Shannon, [address] [place] [address] Arrived [facility] Comment on above: Arrived Start: 2020 Screening for malign ant neoplasm of cervix [facility] Start: 2011 Screening for malign ant neoplasm of cervix Pap Smear [facility] Cytology Cervical or vaginal smear or scraping study Pap Smear Pathology and Cytology Routine Well woman exam with routine gynecological exam Ordered: 06/28/2025 [facility] Work Phone: Comment on above: Ordered: 06/28/2025 Human papilloma viru s DNA [Presence] in Unspecified specimen by Probe with amplification HPV DNA probe, amplified Microbiology Routine Well woman exam with routine gynecological exam Ordered: 06/28/2025 [facility] Healthcare Comment on above: Ordered: 06/28/2025 Immunizations Immunization Date Immunization Notes Care Provider Agustin arcelia 09-27-2020 influenza virus vacc ine, unspecified formulation Hannah Shannon DO Work Phone: [facility] Healthcare Payers Date Payer Category Payer Managed Care HMO (unspecified) [id number] 1990 Unknown [id number] [id number] [id number] 1990 Unknown [id number] [id number] [id number] 1990 Unknown [id number] [id number] [id number] 1990 Unknown [id number] 1990 Unknown [id number] 1990 Unknown [id number] 1990 Unknown [id number] 1959 Private Health Insurance [id number] Social History Date Type Detail Facility Tobacco smoking stat [facility] Tobacco smoking consumption unknown [facility] Start: 1990 Sex assigned at Not on file [facility] Gender identity Not on file [facility] are History of Present illness Narrative 06-28-2025 ANDRES Solano - 06/28/2025 2:00 PM EDT Note Date & Type Note Facility 06-28-2025 History of Presen t illness Narrative Reason for Appointment: Patient ID: Judah Chavez is a 35 y.o. female who [...] nursing note reviewed. Exam conducted with a farm truck driver present. Vitals: There is no height or [...] annual unless needed otherwise. Documented by Oliva Isabel LPN on behalf of: ANDRES Solano documented in this encounter [facility] History of Present illness Narrative 02-22-2025 Sadie Fraser LPN - 02/22/2025 1:40 PM EDT Note Date & Type Note Facility 02-22-2025 History of Presen t illness Narrative Reason for Appointment: Patient ID: Judah Chavez is a 34 y.o. female who presents for Pelvic Pain and Ovarian Cyst Patient presents today for Acute Visit. MEDICATIONS Current Outpatient Medications Medication Instructions ibuprofen 800 mg, As needed lansoprazole (PREVACID) 30 mg, Oral, Daily before breakfast norgestimate-ethinyl estradiol (Ortho Tri-Cyclen,Trinessa) 0.18/0.215/0.25 MG-35 MCG tablet 1 tablet, Daily ALLERGIES Allergies Allergen Reactions Ciprofloxacin Shortness of breath Other Reaction(s): Breathing control PROBLEMS Active Ambulatory Problems Diagnosis Date Noted No Active Ambulatory Problems Resolved Ambulatory Problems Diagnosis Date Noted No Resolved Ambulatory Problems No Additional Past Medical History HISTORY PAST MEDICAL HISTORY SOCIAL HISTORY History reviewed. No pertinent past medical history. Social History Tobacco Use Smoking status: Not [...] Objective: Physical Exam Constitutional: Appearance: Normal appearance. She is well-developed. Cardiovascular: Rate and Rhythm: Normal rate and regular rhythm. Pulmonary: Effort: Pulmonary effort is normal. Breath sounds: Normal breath sounds. Abdominal: General: Bowel sounds are normal. There is no distension. Palpations: Abdomen is soft. Tenderness: There is no abdominal tenderness. There is no guarding or rebound. Musculoskeletal: General: No swelling. Normal range of motion. Right lower leg: No edema. Left lower leg: No edema. Neurological: Mental Status: She is alert and oriented to person, place, and time. Skin: General: Skin is warm and dry. Psychiatric: Mood and Affect: Mood normal. Behavior: Behavior normal. Vitals and nursing note reviewed. Exam conducted with a farm truck driver present. Vitals: There is no height or weight on file to calculate BMI. BP: 112/74 No LMP recorded. ASSESSMENT & PLAN ICD-10-CM 1. Pelvic pain in female R10.2 2. Cyst of left ovary N83.202 Pt presents as a referral from Dr Early, ovarian cyst seen on ultrasound. Pt has been on same control for years and still having irregular bleeding. Pt to be switched from ortho tricyclen. Pt given ultrasound to have obtained. Rx for junel faxed to pharmacy. Documented by Sadie Fraser LPN on behalf of: Hannah Shannon DO documented in this encounter [facility] Clinical Note 01-13-2025 Note Date & Type Note Facility 01-13-2025 Note Patient Education Obstetrics and Gynecology Round Ligament Pain The round ligaments are a pair of cord-like tissues that help support the uterus. They can become a source of pain during as the ligaments soften and stretch as the baby grows. The pain usually begins in the second trimester (13?28 weeks) of , and should only last for a few seconds when it occurs. However, the pain can come and go until the baby is delivered. The pain does not cause harm to the baby. Round ligament pain is usually a short, sharp, and pinching pain, but it can also be a dull, lingering, and aching pain. The pain is felt in the lower side of the abdomen or in the groin. It usually starts deep in the groin and moves up to the outside of the hip area. The pain may happen when you: ??? Suddenly change position, such as quickly going from a sitting to standing position. ??? Do physical activity. ??? Cough or sneeze. Follow these instructions at home: Managing pain ??? When the pain starts, relax. Then, try any of these methods to help with the pain: ? Sit down. ? Flex your knees up to your abdomen. ? Lie on your side with one pillow under your abdomen and another pillow between your legs. ? Sit in a warm bath for 15?20 minutes or until the pain goes away. General instructions ??? Watch your condition for any changes. ??? Move slowly when you sit down or stand up. ??? Stop or reduce your physical activities if they cause pain. ??? Avoid long walks if they cause pain. ??? Take [id number]-[id number] and prescription medicines only as told by your health care provider. ??? Keep all follow-up visits. This is important. Contact a health care provider if: ??? Your pain does not go away with treatment. ??? You feel pain in your back that you did not have before. ??? Your medicine is not helping. ??? You have a fever or chills. ??? You have nausea or vomiting. ??? You have diarrhea. ??? You have pain when you urinate. Get help right away if: ??? You have pain that is a rhythmic, cramping pain similar to labor pains. Labor pains are usually 2 minutes apart, last for about 1 minute, and involve a bearing down feeling or pressure in your pelvis. ??? You have vaginal bleeding. These symptoms may represent a serious problem that is an emergency. Do not wait to see if the symptoms will go away. Get medical help right away. Call your local emergency services (911 in the [place] Do not drive yourself to the hospital. Summary ??? Round ligament pain is felt in the lower abdomen or groin. ??? This pain usually begins in the second trimester (13?28 weeks) and should only last for a few seconds when it occurs. ??? You may notice the pain when you suddenly change position, when you cough or sneeze, or during physical activity. ??? Relaxing, flexing your knees to your abdomen, lying on one side, or taking a warm bath may help to get rid of the pain. ??? Contact your health care provider if the pain does not go away. This information is not intended to replace advice given to you by your health care provider. Make sure you discuss any questions you have with your health care provider. Document Revised: 01/09/2022 Document Reviewed: 01/09/2022 [employer] Patient Education ? 2023 [employer]. [facility] Evaluation note Note Date & Type Note Facility Evaluation note Diagnosis Pelvic pain in female Unspecified symptom associated with female genital organs Cyst of left ovary Other and unspecified ovarian cyst Irregular bleeding Irregular menstrual cycle documented in this encounter [facility] Evaluation note Note Date & Type Note Facility Evaluation note Diagnosis Well woman exam with routine gynecological exam Routine gynecological examination documented in this encounter [facility] Summary Purpose Family History No Family History Records FoundNo Family History Records FoundNo Family History Records Found Advance Directives No Advanced Directives Records FoundNo Advanced Directives Records FoundNo Advanced Directives Records Found Additional Source Comments INFORMATION SOURCE (unrecogn ized section and content) DATE CREATED AUTHOR 08/31/2022 [facility] DATE CREATED AUTHOR AUTHOR'S ORGANIZ ATION 01/15/2025 [facility] DATE CREATED AUTHOR AUTHOR'S ORGANIZ ATION 02/24/2025 [facility] EPIC Reason for Visit (unrecogniz ed section and content) Reason Comments Pelvic Pain Ovarian Cyst Reason Comments Gynecologic Exam FOR RECORDS PERTAINING TO PATIENTS WHO ARE OR HAVE BEEN ENROLLED IN A CHEMICAL DEPENDENCY/SUBSTANCEABUSE PROGRAM, SOME INFORMATION MAY BE OMITTED. This clinical summary was aggregated from multiple sources. Caution should be exercised in using it in the provision of clinical care. This summary normalizes information from multiple sources, and as a consequence, information in this document may materially change the coding, format and clinical context of patient data. In addition, data may be omitted in some cases. CLINICAL DECISIONS SHOULD BE BASED ON THE PRIMARY CLINICAL RECORDS. [facility]. provides no warranty or guarantee of the accuracy or completeness of information in this document.
[2025-07-01 15:08] LABS: Age Gdln ACOG Testing Note (.); IGP, Aptima HPV, rfx 16/18,45 Note (.)
== END 2025-06-28 19:05 | disposition home or self-care (01) ==
LOC: LAB 19:04
PROVIDERS: PCP Nurse Practitioner Family; Visit Provider Physician Assistant
DX: Z01.419 Encounter for gynecological examination (general) (routine) without abnormal findings (principal)
CPT/HCPCS: 87624; 88175

== ENCOUNTER 2025-08-05 18:47 | Outpatient (OUT) | payer OTHER, SELFPAY ==
--- OUTSIDE RECORDS SUMMARY | 2025-08-05 18:51 | XMS_ITS | Encounter Summary ---
Author Organization [facility] Address [address] [place] [address] Care Team Providers Care Folder Machine Adjuster Name Role Phone Unavailable Primary Care Provider Unavailabl e Reason for Visit * Reason Comments Med Change Request Encounter Details Date Type Department Care Team (Late st Contact Info) Description 07/23/2025 Refill [facility] [address] [id number] Audra Zepeda PA [address] [place], [facility]11 PCOS (polycystic ovarian syndrome) Social History Tobacco Use Types Packs/Day Years Used Date Smoking Tobacco: Never Assessed Comments Unknown Sex and Gender Information Value Date Recorded Sex Assigned at Not on file Legal Sex Female 7:36 PM EDT Gender Identity Not on file Sexual Orientation Not on file documented as of this encounter Miscellaneous Notes * Telephone Encounter - Cathie Swift LPN - 07/25/2025 8:19 AM EDT Refill request received and script sent. documented in this encounter Plan of Treatment Not on file documented as of this encounter Visit Diagnoses Diagnosis PCOS (polycystic ovarian syndrome) Polycystic ovaries documented in this encounter
--- OUTSIDE RECORDS SUMMARY | 2025-08-05 18:51 | XMS_ITS | Encounter Summary ---
Author Organization [facility] Address [address] [place] [address] Care Team Providers Care Forgesmith Name Role Phone Unavailable Primary Care Provider Unavailabl e Encounter Details Date Type Department Care Team (Late st Contact Info) Description 08/04/2025 Telephone TIMOTHY CLAUDIO [address] [place] [id number] Unallocated, Noms Moon, [address] [place] [address] Social History Tobacco Use Types Packs/Day Years Used Date Smoking Tobacco: Never Assessed Comments Unknown Sex and Gender Information Value Date Recorded Sex Assigned at Not on file Legal Sex Female 7:36 PM EDT Gender Identity Not on file Sexual Orientation Not on file documented as of this encounter Miscellaneous Notes * Telephone Encounter - Katherine Mejia LPN - 08/04/2025 1:10 PM EDT Reviewed pt chart. Pt does not see provider at this location. Returned call to the above number notified them to reach out to TIMOTHY CLAUDIO * Telephone Encounter - Bell Myrick - 08/04/2025 12:39 PM EDT Hi, my name is Hugo. I am an and 1 advocate with [employer] calling on a recorded line. This call is in reference to Rachelle Chavez. Her date of is 1990 I am at 1 advocate. I am trying to get information as far as D X codes and CPT codes for a trans Vaginal ultrasound. So that way we canget a cost estimate and appointment set up. When you receive this message, please give the member isaac at [phone] or I can be reached here Friday through Friday, 1030AM to 7PM Eastern standardtime at [phone]. Sorry, again that is [phone]. Thank you so much and have a great day. documented in this encounter Plan of Treatment Not on file documented as of this encounter Visit Diagnoses Not on filedocumented in this encounter
--- OUTSIDE RECORDS SUMMARY | 2025-08-05 18:51 | XMS_ITS | Encounter Summary ---
Author Organization [facility] Address [address] [place] [address] Care Team Providers Care Framing Mill Operator Name Role Phone Unavailable Primary Care Provider Unavailabl e Encounter Details Date Type Department Care Team (Late st Contact Info) Description 07/14/2025 Orders Only [facility] [address] [place] [address] [place] [phone] Mckenzie Crump MA Social History Tobacco Use Types Packs/Day Years Used Date Smoking Tobacco: Never Assessed Comments Unknown Sex and Gender Information Value Date Recorded Sex Assigned at Not on file Legal Sex Female 7:36 PM EDT Gender Identity Not on file Sexual Orientation Not on file documented as of this encounter Plan of Treatment Not on file documented as of this encounter Procedures Procedure Name Priority Date/Time Associated Diagnosis Comments PAP SMEAR Routine 06/28/2025 12:00 AM EDT documented in this encounter Results * Pap Smear (06/28/2025 12:00 AM EDT) Swab Cervical swab / Unknown us [facility] CYTOLOGY ORDERABLES Final Re sult EXTERNAL LAB documented in this encounter Visit Diagnoses Not on filedocumented in this encounter
--- OUTSIDE RECORDS SUMMARY | 2025-08-05 18:52 | XMS_ITS | Clinical Summary ---
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 Take before meals. Active ibuprofen 800 MG tablet Take 800 mg by mouth if needed 5 Active norethindrone- ethinyl estradiol (11/29) 1-20 MG-MCG tabletIndicati ons:Cyst of left ovary,Irregula r bleeding Take 1 tablet by mouth Daily 28 tablet 11 5 02/23/20 26 Active desogestrel-et hinyl estradiol (Apri) 0.15-30 MG-MCG tabletIndicati ons:Dysfunctio nal uterine bleeding Take 1 tablet by mouth Daily 84 tablet 3 5 09/20/20 25 Active metFORMIN XR (Glucophage-XR ) 500 MG 24 hr tabletIndicati ons:PCOS (polycystic ovarian syndrome) TAKE 1 TABLET BY MOUTH IN THE EVENING WITH MEALS 90 tablet 1 5 Active metFORMIN XR (Glucophage-XR ) 500 MG 24 hr tabletIndicati ons:PCOS (polycystic ovarian syndrome) Take 1 tablet (500 mg) by mouth in the evening. Take with meals 30 tablet 2 5 07/25/20 25 Discontinued Active Problems Problem Noted Date Diagnosed Date Well woman exam with routine gynecological exam 06/28/2025 Encounters Date Type Department Care Team Description 08/04/2025 Telephone [facility] [address] [place] [address] Unallocated, Noms MD Moon 08/03/2025 Telephone [facility] [address] [place] [address] Ken Shannon, 07/23/2025 Refill [facility] [address] [place] [address] Audra Zepeda PA PCOS (polycystic ovarian syndrome) 07/14/2025 Orders Only [facility] [address] [place] [address] Mckenzie Crump MA 06/28/2025 2:00 PM EDT Office Visit [facility] [address] [place] [address] Audra Zepeda PA Well woman exam with routine gynecological exam; PCOS (polycystic ovarian syndrome); Dysfunctional uterine bleeding 06/28/2025 Clinisync Result Encounter [facility] External Department Unsolicited Audra Zepeda PA 06/28/2025 Abstract [facility] [address] [place] [address] Ken Shannon, 06/28/2025 Bamboo flowsheet [facility] [address] [place] [address] Audra Zepeda PA 06/27/2025 Travel from [...] Mass Index - - Plan of Treatment Health Maintenance Due Date Last Done Comments HPV/Cotest 2020 Influenza Vaccine (#1) 2025 09/27/2020 Cervical Cancer Screening 06/28/2028 Pap Smear 06/28/2028 06/28/2025 Procedures Procedure Name Priority Date/Time Associated Diagnosis Comments IGP,APTIMA HPV,AGE GDLN Routine 06/28/2025 2:15 PM EDT PAP SMEAR Routine 06/28/2025 12:00 AM EDT from Last 3 Months Results * IGP,APTIMA HPV,AGE GDLN (06/28/2025 2:15 PM EDT) AGE GDLN ACOG TESTING Note . [facility] Comment: TESTS RESULT FLAG UNITS REF RANGE LAB Clinician Provided Cytology Information Source.............Cervix No. of containers..01 ThinPrep Vial Age Ngoc ACTAYLOR Dee... 3065 FLAG LEGEND: L-Low Normal,H-High Normal,LL-Alert Low,HH-Alert High <-Panic Low,>-Panic High,A-Abnormal,AA-Critical Abnormal Performed at: 01 =G [facility] [address] [place] [address] Bhavna Mathews MD, IGP, APTIMA HPV, RFX 16/18,45 Note . [facility] Comment: TESTS RESULT FLAG UNITS REF RANGE LAB DIAGNOSIS: 02 NEGATIVE FOR INTRAEPITHELIAL LESION OR MALIGNANCY. Specimen adequacy: 02 Satisfactory for evaluation. Endocervical and/or squamous metaplastic cells (endocervical component) are present. Performed by: 02 Beth Dinh, Biodiesel Processing Technician ([facility]) . 02 Note: Note 02 The Pap smear is a screening test designed to aid in the detection of premalignant and malignant conditions of the uterine cervix. It is not a diagnostic procedure and should not be used as the sole means of detecting cervical cancer. Both false-positive and false-negative reports do occur. Test Methodology: Note 02 This liquid based ThinPrep(R) pap test was screened with the use of an image guided system. HPV Genotype Reflex Note 02 Criteria not met, HPV Genotype not performed. FLAG LEGEND: L-Low Normal,H-High Normal,LL-Alert Low,HH-Alert High <-Panic Low,>-Panic High,A-Abnormal,AA-Critical Abnormal Performed at: 02 [address] [facility] [address] [place] [address] Bhavna Mathews MD, HPV APTIMA Negative Negative [facility] Comment: This nucleic acid amplification test detects fourteen high- risk HPV types (16,18,31,33,35,39,45,51,52,56,58,59,66,68) without differentiation. Performed at: = - [facility] [id number] Telegraph Mechanic: Bhavna Mathews MD, Phone: [phone] Performed at: [facility] [id number] Telegraph Mechanic: Bhavna Mathews MD, Phone: [phone] 06/28/2025 2:15 PM EDT 06/28/2025 7:16 PM EDT Narrative [facility] - 07/01/2025 3:08 PM EDT BRUSH-SPATULA CERVIX us [facility] BLOOD [facility]ABLES [facility] * Pap Smear (06/28/2025 12:00 AM EDT) Swab Cervical swab / Unknown us [facility] CYTOLOGY ORDERABLES Final Re sult EXTERNAL LAB from Last 3 Months Insurance [employer]
--- OUTSIDE RECORDS SUMMARY | 2025-08-05 18:52 | XMS_ITS | Encounter Summary ---
Author Organization [facility] Address [address] [place] [address] Care Team Providers Care Metal Bonding Press Operator Name Role Phone Unavailable Primary Care Provider Unavailabl e Encounter Details Date Type Department Care Team (Late st Contact Info) Description 08/03/2025 Telephone [facility] [address] [place] [address] Ken Shannon DO [address] [place], [facility]11 Social History Tobacco Use Types Packs/Day Years Used Date Smoking Tobacco: Never Assessed Comments Unknown Sex and Gender Information Value Date Recorded Sex Assigned at Not on file Legal Sex Female 7:36 PM EDT Gender Identity Not on file Sexual Orientation Not on file documented as of this encounter Miscellaneous Notes * Telephone Encounter - Cathie Swift LPN - 08/03/2025 11:58 AM EDT Patient called asking if the ultrasound that she does have can be sent again to [facility] as she wastrying to see where the cheapest place was to have this one. Order resent for her. Patient was asking if we do labs here in house and she was advised that this are not obtained in office. PVU documented in this encounter Plan of Treatment Not on file documented as of this encounter Visit Diagnoses Not on filedocumented in this encounter
--- OUTSIDE RECORDS SUMMARY | 2025-08-05 18:52 | XMS_ITS | Encounter Summary ---
Author Organization [facility] Address [address] [place] [address] Care Team Providers Care Event Promoter Name Role Phone Unavailable Primary Care Provider Unavailabl e Encounter Details Date Type Department Care Team (Late st Contact Info) Description 06/28/2025 Abstract [facility] [address] [address] Ken Shannon DO [address] [place], [facility]11 Social History Tobacco Use Types Packs/Day Years [...]
--- OUTSIDE RECORDS SUMMARY | 2025-08-05 18:52 | XMS_ITS | CCD ---
Author Organization [facility] Care Team Providers Care Sql Ssis Developer Name Role Phone KAT, DR COYNE Admitting Unavailable KAT, DR COYNE Attending Unavailable KAT, DR COYNE Consulting Unavailable KAT, DR COYNE Admitting Unavailable KAT, DR COYNE Attending Unavailable KAT, DR COYNE Consulting Unavailable KAT, DR COYNE Admitting Unavailable KAT, DR COYNE Attending Unavailable LYNDSEYY, DR COYNE Consulting Unavailable Unavailable Primary Care Provider UnavailHANNAH Padilla Attending Unavailable AUDRA RIOJAS Attending Unavailable Eula Chen Attending Unavailable SHADE LERNER Attending Unavailable Allergies Allergy Classification Reported Allergen(s) Allergy Type Date of Onset Reaction(s) Facility (2 sources) Ciprofloxacin; Translations: [Cipro] Drug Allergy 6 [facility] Repository (6 sources) Ciprofloxacin Drug Allergy 5 Shortness of breath [facility] Medications Current Medications Medication Drug Class(es) Dates Sig (Normalized) Sig (Original) desogestrel 0.15 mg / ethinyl estradiol 0.03 mg oral tablet (4 sources) Progestin, Estrogen Start: 03-07-2025 End: 09-20-2025 desogestrel-ethinyl estradiol (Apri) 0.15-30 MG-MCG tablet Indications: Dysfunctional uterine bleeding Take 1 tablet by mouth Daily 84 tablet 3 06/28/2025 09/20/2025 Active Ethinyl Estradiol / Ferrous fumarate / Norethindrone (6 sources) Estrogen Start: 02-22-2025 End: 02-22-2026 norethindrone-ethin yl estradiol (11/29) 1-20 MG-MCG tablet Indications: Cyst of left ovary , Irregular bleeding Take 1 tablet by mouth Daily 28 tablet 11 02/22/2025 02/22/2026 Active ibuprofen 800 mg oral tablet (6 sources) Nonsteroidal Anti-inflammatory Drug Start: 01-11-2025 ibuprofen 800 MG tablet Take 800 mg by mouth if needed 01/11/2025 Active lansoprazole 15 mg delayed release oral capsule (6 sources) Proton Pump Inhibitor take 2 capsules by mouth before mealtime lansoprazole (Prevacid) [address] capsule Take 30 mg by mouth in the morning. Take before meals. Active 24 hr metFORMIN hydrochloride 500 mg extended release oral tablet (1 source) Biguanide Start: 06-28-2025 End: 07-28-2025 take 1 tablet by mouth every twenty-four hours at mealtime metFORMIN XR (Glucophage-XR) 500 MG 24 hr tablet Indications: PCOS (polycystic ovarian syndrome) Take 1 tablet (500 mg) by mouth in the evening. Take with meals 30 tablet 2 06/28/2025 07/28/2025 Active Completed/Discontinued Medications Medication Drug Class(es) Dates [...] Test Name Value Interpretation Reference Range Facility Ambulatory Visit Summaryon 0 08-04-2025 Ambulatory Visit Summary Ambulatory Visit Summary JUDAH CHAVEZ :1990 Visit Date:08/04/2025 Ambulatory Visit Instructions Your Diagnosis Pelvic pain Your Care Team Attending Physician - Eula Hawley Primary Care Physician - Bryce Early MD This Is Your Medications List desogestrel-ethinyl estradiol (Apri oral tablet) fluoride topical (Denta 5000 Plus topical cream) ibuprofen (ibuprofen 800 mg Tab) lansoprazole (lansoprazole 30 mg Cap-DR) loperamide (Immodium A-D 2 mg Tab) Procedures Performed Fracture, T and A (tonsillectomy and adenoidectomy) postoperative education. Discharge Vitals Temperature (Temporal Artery) 36.3 ???C Heart Rate (Peripheral) 88 Respiratory Rate 18 Blood Pressure 142/88 Height 180.3 cm Height 71 in Weight 114.0 kg Weight 251.327 lb BMI 35.07 Medications What How Much When Why Instructions Unchanged desogestrel-ethinyl estradiol (Apri oral tablet) TAKE 1 TABLET BY MOUTH DAILY FOR 28 DAYS Unchanged fluoride topical (Denta 5000 Plus topical cream) 153 gm, 0 Refill(s), BRUSH FOR 2 MINUTES AT BEDTIME AFTER USE SPIT OUT DO NOT EAT/ DRINK/ RINSE FOR 30 MINUTES Unchanged ibuprofen (ibuprofen 800 mg Tab) See instructions TAKE 1 TABLET BY MOUTH FOUR TIMES A DAY NEEDED Unchanged lansoprazole (lansoprazole 30 mg Cap-DR) See instructions TAKE 1 CAPSULE BY MOUTH EVERY DAY Unchanged loperamide (Immodium A-D 2 mg Tab) 1 Tablets By Mouth Every 4 hours as needed for for loose stool Gastritis not to exceed 8 capsules, or 16 mg, in 24 hours Allergies Cipro (Breathing control) Problems Ongoing - Any problem that you are currently receiving treatment for. Excessive dietary caloric intake GERD without esophagitis Knee pain, left Pelvic pain Sinusitis Patient Survey You may receive a survey via text or e-mail asking about your office visit. Please share your experience with us by completing your survey. We appreciate your feedback and thank you for choosing us for your care. Patient Portal You may access all of your results and other medical record information on our secure patient portal. If you are not signed up for this yet, please contact [employer] at [phone] to get signed up today. Language Information Language assistance services are available as needed. Normal [facility] Family Medicine Office/Clini c Noteon 08-04-2025 Family Medicine Office/Clinic Note Family Medicine Office/Clinic Note HPI Staff Pt is here for having bowel issues- Ongoing for a couple weeks, diarrhea when she goes it is mush has not tried anything for this Was ordered to have a colonoscopy over 10 years ago, she said she was not important and didn't want to do it, she said she would do one now abdominal pain started Friday... she has an ovarial cyst Vaginal US done in 01/17/25 @ [facility] Seen Audra Marina in June had a pap... NORMAL She was advised to get another us pelvis by Mirtha but she had to pay 600 dollars for the first one, she did not have money at that time to do the second one... she is ready to do the second one now History of Present Illness pt presents today for continued low pelvic pain and some abdominal cramping with loose stools Review of Systems PHQ Score Initial Depression Screen Score: 0 SCORE Physical Exam Vitals & Measurements T: 36.3 ???C(Temporal Artery) HR: 88(Peripheral) RR: 18 BP: 142/88 SpO2: 97% HT: 180.3 cm HT: 71 in WT: 114.0 kg WT: 251.327 lb BMI: 35.07 General: alert, no acute distress ENMT: oral mucosa moist, no pharyngeal erythema or exudate Cardiovascular: regular rate and rhythm, normal peripheral perfusion Respiratory: Lungs CTA, respirations non labored Extremities: no deformity, no trauma Neurological: oriented x 4, LOC appropriate for age, CN II-XII intact, motor strength equal & normal bilaterally, speech normal Assessment/Plan 1. Pelvic pain (R10.2: Pelvic and perineal pain) pt has an order for pelvic u/s. she is just waiting to hear back from hospital to schedule it. Dr. Shannon has also ordered labs to rule out PCOS. Ordered: dicyclomine, 20 mg = 1 tab(s), Oral, QID, X 10 day(s), # 40 tab(s), Refills(s) 0, [id number], 180.3, cm, 08/04/25 10:49:00 EDT, Height/Length Dosing, 114, kg, 08/04/25 10:49:00 EDT, Weight Dosing ondansetron, 4 mg = 1 tab(s), Oral, q6hr, PRN Nausea/Vomiting, # 15 tab(s), Refills(s) 0, [id number], 180.3, cm, 08/04/25 10:49:00 EDT, Height/Length Dosing, 114, kg, 08/04/25 10:49:00 EDT, Weight Dosing 2. Abdominal cramping (R10.9: Unspecified abdominal pain) pt c/o some abdominal cramping with bloating and soft stools that comes and goes. will send in bentyl. after she is cleared by OBGYN she will return to office for GI referral. RTC after cleared by B[facility]ER Ordered: dicyclomine, 20 mg = 1 tab(s), Oral, QID, X 10 day(s), # 40 tab(s), Refills(s) 0, [id number], 180.3, cm, 08/04/25 10:49:00 EDT, Height/Length Dosing, 114, kg, 08/04/25 10:49:00 EDT, Weight Dosing ondansetron, 4 mg = 1 tab(s), Oral, q6hr, PRN Nausea/Vomiting, # 15 tab(s), Refills(s) 0, Pharmacy: [facility]/pharmacy #[id number], 180.3, cm, 08/04/25 10:49:00 EDT, Height/Length Dosing, 114, kg, 08/04/25 10:49:00 EDT, Weight Dosing 3. Nausea (R11.0: Nausea) pt c/o nausea that comes and goes as well. will send in zofran Ordered: ondansetron, 4 mg = 1 tab(s), Oral, q6hr, PRN Nausea/Vomiting, # 15 tab(s), Refills(s) 0, Pharmacy: [facility]/pharmacy #[id number], 180.3, cm, 08/04/25 10:49:00 EDT, Height/Length Dosing, 114, kg, 08/04/25 10:49:00 EDT, Weight Dosing 4. BMI 35.0-35.9,adult (Z68.35: Body mass index [BMI] 35.0-35.9, adult) bmi education Follow-up No qualifying data available Problem List/Past Medical History Ongoing Abdominal cramping BMI 35.0-35.9,adult Excessive dietary caloric intake GERD without esophagitis Knee pain, left Nausea Pelvic pain Sinusitis Historical No qualifying data Procedure/Surgical History Fracture, T and A (tonsillectomy and adenoidectomy) postoperative education. Medications Apri oral tablet Denta 5000 Plus topical cream dicyclomine 20 mg Tab, 20 mg= 1 tab(s), Oral, QID ibuprofen 800 mg Tab, See Instructions Immodium A-D 2 mg Tab, 2 mg= 1 tab(s), Oral, q4hr, PRN, Not taking lansoprazole 30 mg Cap-DR, See Instructions ondansetron 4 mg Dis Tab, 4 mg= 1 tab(s), Oral, q6hr, PRN Allergies Cipro (Breathing control) Social History Alcohol Never., 01/13/2025 Substance Abuse Never., 01/13/2025 Tobacco Never (less than 100 in lifetime) Tobacco Use:., 08/04/2025 Family History Acute myocardial infarction: Grandparent. Diabetes mellitus type 1: Grandparent. Drug addiction: Sister and Brother. Stroke: Father. Immunizations Vaccine Date Status Comments influenza virus vaccine, inactivated - Not Given Postpone due to refusal SARS-CoV-2 (COVID-19) mRNA BNT-162b2 vax 04/21/2021 Recorded 2023-07-30: TPVAL SARS-CoV-2 (COVID-19) mRNA BNT-162b2 vax 04/01/2021 Recorded 2023-07-30: TPVAL influenza, unspecified formulation 09/27/2020 Recorded measles/mumps/rubell a virus vaccine 03/23/2002 Recorded DTaP, unspecified formulation 04/02/1995 Recorded measles/mumps/rubell a virus vaccine 10/20/1991 Recorded Normal [facility] Comment on above: Result Comment: Elec tronically Signed By: April DE LOS SANTOS, Eula More.br\Date and Time Signed: 08/04/25 11:15 EDT IGP,APTIMA HPV,AGE GDLNon AGE GDLN ACOG TESTING Note . [facility] Comment on above: TESTS RESULT FLAG U NITS REF RANGE LAB Clinician Provided Cytology Information Source.............Cervix No. of containers..01 ThinPrep Vial Age Algo ACOG Dee... 30-65 01 FLAG LEGEND: L-Low Normal,H-High Normal,LL-Alert Low,HH-Alert High <-Panic Low,>-Panic High,A-Abnormal,AA-Critical Abnormal Performed at: 01 =G [address] [address] Bhavna Mathews MD, HPV APTIMA Negative Negative [facility] Comment on above: This nucleic acid am plification test detects fourteen high- risk HPV types (16,18,31,33,35,39,45,51,52,56,58,59,66,68) without differentiation. Performed at: =G - [facility], [place] [id number] Advertising Editor: Bhavna Mathews MD, Phone: [phone] Performed at: - [facility], [place] [id number] Advertising Editor: Bhavna Mathews MD, Phone: [phone] IGP, APTIMA HPV, RFX 16/18,45 Note . [facility] Comment on above: TESTS RESULT FLAG UN ITS REF RANGE LAB DIAGNOSIS: 02 NEGATIVE FOR INTRAEPITHELIAL LESION OR MALIGNANCY. Specimen adequacy: 02 Satisfactory for evaluation. Endocervical and/or squamous metaplastic cells (endocervical component) are present. Performed by: Carolyne Dinh, Business School Dean ([facility]) . 02 Note: Note 02 The Pap [...] <-Panic Low,>-Panic High,A-Abnormal,AA-Critical Abnormal Performed at: 02 [facility] [address] [facility] [place] [address] Bhavna Mathews MD, BR[facility]SP[facility]ULA [facility]ERVIX [facility] Urinalysis macro (dipstick) panel (U)on 02-22-2025 Bilirubin, UA Negative Negative - 4(70) +++ mg/dL [facility] Blood, UA Negative Negative - 50 Papo/mcL [facility] Clarity, UA Clear [facility] Color, UA Yellow [facility] Glucose, UA Negative Negative - 1999(110) ++++ mg/dL [facility] Interpretation and review of laboratory results Abnormal [facility] Ketones, UA Positive Negative - 160(16) ++++ mg/dL [facility] Comment on above: trace Leukocytes, UA Negative Negative - 500+++ Dixie/mcL [facility] Nitrite, UA Negative Negative - Positive [facility] pH, UA 5.5 5 - 9 [facility] Protein, UA Negative Negative - 1999(20) ++++ mg/dL [facility] Spec Grav, UA 1.025 1 - 1.03 [facility] Urobilinogen, UA 1.0 0.2 - 12 mg/dL [facility] Family Medicine Office/Clini c Noteon 01-13-2025 Family Medicine Office/Clinic Note Family Medicine Office/Clinic Note Chief Complaint Persistent abdominal pain rated at 3 on a scale of 0 to 10. HPI Staff Judah is a 34 year old [...] Urnls Dip Stick Auto w/o Microscopy POC 80004 US Pelvis Non-OB Complete 3. Non-smoker (Z78.9: [...] Medications Denta 5000 Plus topical cream ethinyl estradiol-norgestima te triphasic 35 mcg Tab, See Instructions hydrOXYzine [...] 2023-07-30: TPVAL influenza, unspecified formulation 09/27/2020 Recorded measles/mumps/rubell a virus vaccine 03/23/2002 Recorded DTaP, unspecified formulation 04/02/1995 Recorded measles/mumps/rubell a virus vaccine 10/20/1991 Recorded Lab Results Ambulatory Point of Care Results Bilirubin Urine Dipstick: Negative (01/13/25 15:59:00) Blood Urine Dipstick: Negative (01/13/25 15:59:00) Glucose Urine Dipstick: Negative (01/13/25 15:59:00) Ketones Urine Dipstick: Negative (01/13/25 15:59:00) Leukocytes Urine Dipstick: Negative (01/13/25 15:59:00) Nitrite Urine Dipstick: Negative (01/13/25 15:59:00) Protein Urine Dipstick: 1+ (30 mg/dl) (01/13/25 15:59:00) Specific [place]coe Urine D (more content not included)... Normal [facility] Comment on above: Result Comment: Elec tronically Signed By: SHADE LERNER CNP\guillermo\Date and Time Signed: 01/13/25 16:23 EST [facility]10 SARS-CoV-2 (COVID-19) RNA ENRIQUE+probe Ql (Unsp spec) Not detected Normal NOT DETECTED [facility] Comment on above: Result Comment: When diagnostic [...] for this test is supported by the Senior Data Integration Developer of Health and Human Service's declaration that [...] longer be used). Performed By: #### C VDTB #### [facility] [address] [place] [address] Dr. Aster Black Covid-19 PCR ([facility]VD[facility])on 01-09 SARS-CoV-2 (COVID-19) RNA ENRIQUE+probe Ql (Unsp spec) Not detected Normal NOT DETECTED [facility] Comment on above: Result Comment: When diagnostic [...] for this test is supported by the [place] of Health and Human Service's declaration that [...] used). Performed By: #### C VDTBH #### [facility] [address] [place] [address] Dr. Aster Black INFLUENZA A AND B AGon 01-28 [facility] SEE BELOW Normal [facility] Comment on above: Result Comment: Nega tive for Flu A protein angiten. Infection due to Flu A cannot be ruled out. Flu A angiten in the sample may be below the detection limit of the test. Performed By: #### I NFLUAB #### [facility] [address] [place] [address] Dr. Aster Balck INFLUBNEG SEE BELOW Normal [facility] Comment on above: Result Comment: Nega tive for Flu B protein antigen. Infection due to Flu B cannot be ruled out. Flu B antigen in the sample may be below the detection limit of the test. Performed By: #### I NFLUAB #### [facility] [address] [place] [address] Dr. Aster Black INFLUENZA A AG Negative Normal NEGATIVE SEE COMMENT [facility] Comment on above: Performed By: #### I NFLUAB #### [facility] [address] [place] [address] Dr. Aster Black INFLUENZA B AG Negative Normal NEGATIVE SEE COMMENT [facility] Comment on above: Performed By: #### I NFLUAB #### [facility] [address] [place] [address] Dr. Aster Black INTERNAL CONTROLS Within Normal Limits Normal Wi thin Normal Limits [facility] Comment on above: Performed By: #### I NFLUAB #### [facility] [address] [place] [address] Dr. Aster Black Covid-19 PCR ([facility])on 10-11 SARS-CoV-2 (COVID-19) RNA ENRIQUE+probe Ql (Unsp spec) Detected Critically abnormal NOT DETECTED [facility] Comment on above: Result Comment: This test is not yet approved or cleared by the [place] FDA. When there are no FDA-approved or cleared tests available, and other criteria are met, FDA can make tests available under an emergency access mechanism called an Emergency Use Authorization (EUA). The EUA for this test is supported by the Senior Data Integration Developer of Health and Human Service's (HHS's) declaration [...] used). Performed By: #### C VDTBH #### [facility] [address] [place] [address] Dr. Aster Black INFLUENZA A AND B [facility] 11-01 [facility] SEE BELOW Normal [facility] Comment on above: Result Comment: Nega tive for Flu A protein angiten. Infection due to Flu A cannot be ruled out. Flu A angiten in the sample may be below the detection limit of the test. Performed By: #### I NFLUAB #### [facility] [address] [place] [address] Dr. [facility] Normal [facility] Comment on above: Result Comment: Nega tive for Flu B protein antigen. Infection due to Flu B cannot be ruled out. Flu B antigen in the sample may be below the detection limit of the test. Performed By: #### I NFLUAB #### [facility] [address] [place] [address] Dr. Aster Black INFLUENZA A AG Negative Normal NEGATIVE SEE COMMENT [facility] Comment on above: Performed By: #### I NFLUAB #### [facility] [address] [place] [address] Dr. Aster Black INFLUENZA B AG Negative Normal NEGATIVE SEE COMMENT [facility] Comment on above: Performed By: #### I NFLUAB #### [facility] [address] [place] [address] Dr. Aster Black INTERNAL CONTROLS Within Normal Limits Normal Wi thin Normal Limits [facility] Comment on above: Performed By: #### I NFLUAB #### [facility] [address] [address] [address] Aster Black Vital Signs Date Time Vital Sign Value Performing Clinician Mike jade 06-28-2025 14:30-0400 Body weight 112.4 kg Audra CAMPOS Work Phone: [facility] 06-28-2025 14:30-0400 Diastolic blood pressure 76 mm[Hg] Audra CAMPOS Work Phone: [facility] 06-28-2025 14:30-0400 Systolic blood pressure 122 mm[Hg] Audra CAMPOS Work Phone: [facility] 02-22-2025 13:51-0400 Body weight 112.22 kg Hannah Mirtha DO Work Phone: [facility] 02-22-2025 13:51-0400 Diastolic blood pressure 74 mm[Hg] Hannah Mirtha DO Work Phone: [facility] 02-22-2025 13:51-0400 Systolic blood pressure 112 mm[Hg] Hannah Mirtha DO Work Phone: [facility] Encounters Encounter Date Encounter Type Care Provider Facility Start: 08-04-2025 End: 08-04-2025 ambulatory [facility] Start: 06-28-2025 End: 06-28-2025 Bamboo flowsheet Audra CAMPOS Work Phone: [facility] Start: 06-28-2025 End: 07-01-2025 Bamboo flowsheet Audra CAMPOS Work Phone: [facility] Start: 06-28-2025 End: 07-01-2025 [facility] Result Encounter Audra CAMPOS Work Phone: [facility] External Department Unsolicited Start: 06-28-2025 End: 06-28-2025 Patient encounter procedure Audra CAMPOS Work Phone: [facility] Start: 06-28-2025 End: 06-28-2025 Periodic preventive med est patient 18-39 yrs Audra CAMPOS Work Phone: [facility] Comment on above: Well woman exam with routine gynecological exam Start: 06-28-2025 End: 06-28-2025 ambulatory AUDRA RIOJAS Not Available Start: 02-22-2025 End: 02-22-2025 Bamboo flowsheet Hannah [...] Not Available Start: 01-13-2025 End: 01-13-2025 ambulatory SHADE LERNER Facility: [facility] Start: 08-26-2022 End: 08-26-[address] STANFORD STEPHENS Facility:[facility] Start: 01-28-2022 End: 01-28-[address] STANFORD STEPHENS Facility:[facility] Start: 11-01-2021 End: 11-01-[address] STANFORD STEPHENS Facility:[facility] Procedures Date Procedure Procedure Detail Performing Clinician Start: 06-28-2025 IGP,APTIMA HPV,AGE GDLN Audra CAMPOS Work Phone: Start: 02-22-2025 Urnls dip stick/tabl et rgnt non-auto w/o micrscp Hannah Mirtha DO Work Phone: Plan of Treatment Date Care Activity Detail Author Start: 07-27-2025 End: 07-27-2025 Patient encounter procedure 07/27/2025 9:30 AM EDT Office Visit [facility] [address] [id number] Audra Riojas PA [address] [place] [address] [facility] Start: 07-11-2025 Influenza [facility] Start: 06-28-2025 End: 06-28-2025 Patient encounter procedure 06/28/2025 2:00 PM EDT Office Visit [facility] [address] [place] [id number] Audra Riojas PA [address] [place] [address] Arrived [facility] Comment on above: Arrived Start: 05-25-2025 End: 05-25-2025 Patient encounter procedure 05/25/2025 2:40 PM EDT Office Visit [facility] [address] [place] [address] Hannah Shannon, [address] [place] [address] [facility] Start: 02-22-2025 End: 08-24-2025 US Pelvis transvaginal US pelvis transvaginal Imaging Routine Pelvic pain in female Cyst of left ovary Irregular bleeding Expected: 02/22/2025, Expires: 08/24/2025 [facility] Work Phone: Comment on above: Expected: 02/22/2025 , Expires: 08/24/2025 Start: 02-22-2025 End: 02-22-2025 Patient encounter procedure 02/22/2025 1:40 PM EDT Office Visit [facility] [address] [id number] Hannah Shannon, [address] [place], [place] [id number] Arrived [facility] Comment on above: Arrived Start: 2020 Screening for malign ant neoplasm of cervix [facility] Start: 2011 Screening for malign ant neoplasm of cervix Pap Smear [facility] Cytology Cervical or vaginal smear or scraping study Pap Smear Pathology and Cytology Routine Well woman exam with routine gynecological exam Ordered: 06/28/2025 [facility] Work Phone: Comment on above: Ordered: 06/28/2025 Human papilloma viru s DNA [Presence] in Unspecified specimen by Probe with amplification HPV DNA probe, amplified Microbiology Routine Well woman exam with routine gynecological exam Ordered: 06/28/2025 [facility] Comment on above: Ordered: 06/28/2025 Immunizations Immunization Date Immunization Notes Care Provider Fa [facility] 09-27-2020 influenza virus vacc ine, unspecified formulation Hannah Shannon DO Work Phone: [facility] Payers Date Payer Category Payer Managed Care HMO (unspecified) [id number] 1990 Unknown [id number] 1990 Unknown [id number] 1990 Unknown [id number] 1990 Unknown [id number] 1990 Unknown [id number] 1990 Unknown [id number] 1990 Unknown [id number] 1959 Private Health Insurance [id number] Social History Date Type Detail Facility Tobacco smoking stat [facility] Tobacco smoking consumption unknown [facility] Start: 1990 Sex assigned at Not on file [facility] Gender identity Not on file [facility] are History of Present illness Narrative [...] mg, Oral, Daily before breakfast norethindrone-ethinyl estradiol (June11/29) 1-20 MG-MCG tablet 1 tablet, Oral, Daily [...] nursing note reviewed. Exam conducted with a coldfusion present. Vitals: There is no height or [...] nursing note reviewed. Exam conducted with a coldfusion present. Vitals: There is no height or [...] Hannah Shannon DO documented in this encounter [facility] Clinical Note 01-13-2025 Note Date & [...] walks if they cause pain. ??? Take hzcz-haf-edavsdb and prescription medicines only as told by [...] provider. Document Revised: 01/09/2022 Document Reviewed: 01/09/2022 [employer] Patient Education ? 2023 Related Content Database (RCDb). [facility] Evaluation note Note Date & Type Note Facility Evaluation note Diagnosis Pelvic pain in female Unspecified symptom associated with female genital organs Cyst of left ovary Other and unspecified ovarian cyst Irregular bleeding Irregular menstrual cycle documented in this encounter [facility] Evaluation note Note Date & Type Note Facility Evaluation note Diagnosis Well woman exam with routine gynecological exam Routine gynecological examination documented in this encounter [facility] Summary Purpose Family History No Family History Records FoundNo Family History Records FoundNo Family History Records Found Advance Directives No Advanced Directives Records FoundNo Advanced Directives Records FoundNo Advanced Directives Records Found Additional Source Comments INFORMATION SOURCE (unrecogn ized section and content) DATE CREATED AUTHOR 08/31/2022 [facility] DATE CREATED AUTHOR AUTHOR'S ORGANIZ ATION 06/30/2025 [facility] EPIC DATE CREATED AUTHOR AUTHOR'S ORGANIZ ATION 08/05/2025 [facility] Reason for Visit (unrecogniz ed section and [...] BE BASED ON THE PRIMARY CLINICAL RECORDS. [facility] provides no warranty or guarantee of the accuracy or completeness of information in this document.
--- NOTE | 2025-08-05 18:57 | US_ITS ---
[facility] [place] [id number] Patient Name: JUDAH CHO MRN: [id number] date: 1990 Sex: F Assigned Patient Location: US Current Patient Location: US Accession/Order Number: [id number] Exam Date: 08/05/2025 19:04 Report Date: 08/05/2025 20:23 At the request of: HANNAH CASTILLO DO Procedure: US pelvis transvaginal Transvaginal pelvic ultrasound INDICATION: Pelvic pain for 4 days COMPARISON: 01/17/2025 FINDINGS: Anteverted uterus measuring 9.5 x 4.9 x 6.0 cm. Endometrial thickness measures 8.2 mm which is normal. Right ovary not visualized. Obscured by bowel gas. Left ovary measures 5.1 x 3.3 x 5.1 cm. Complex cyst involving left ovary 4.9 x 3.0 x 4.3 cm in size with internal septations noted. No increased vascularity or soft tissue component identified. US/US pelvis transvaginal IMPRESSION: Mildly complex left ovarian cyst with septae noted measuring 4.9 cm in size. This is most likely physiologic finding. Recommend ultrasound follow-up Impression dictated by: Subhash Christie M.D. 08/05/2025 8:23 PM Dictation Location: [place] [address] Electronically authenticated by: [id number] Y Date: 08/05/2025 20:23
== END 2025-08-05 18:48 | disposition home or self-care (01) ==
PROVIDERS: PCP Nurse Practitioner Family; Visit Provider Obstetrics & Gynecology
DX: R10.2 Pelvic and perineal pain (principal); N83.202 Unspecified ovarian cyst, left side; N92.6 Irregular menstruation, unspecified
CPT/HCPCS: 76830

== ENCOUNTER 2025-08-31 12:14 | Outpatient (OUT) | payer OTHER, SELFPAY ==
--- OUTSIDE RECORDS SUMMARY | 2025-08-31 12:17 | XMS_ITS | CCD ---
Author Organization [facility] Care Team Providers Care Land Examiner Name Role Phone KAT, DR COYNE Admitting Unavailable KAT, DR COYNE Attending Unavailable KAT, DR COYNE Consulting Unavailable KAT, DR COYNE Admitting Unavailable KAT, DR COYNE Attending Unavailable KAT, DR COYNE Consulting Unavailable KAT, DR COYNE Admitting Unavailable KAT, DR COYNE Attending Unavailable LYNDSEYY, DR COYNE Consulting Unavailable Unavailable Primary Care Provider UnavailEula Jackson Attending Unavailable SHADE LERNER Attending Unavailable HANNAH SHANNON Attending Unavailable AUDRA RIOJAS Attending Unavailable LIYA BUCKNER Attending Unavailable Allergies Allergy ClassificationReported Allergen(s)Allergy TypeDate of OnsetReaction(s) Facility (2 sources)Ciprofloxacin; Translations: [Cipro]Drug Wdnlvhu61-41-5977Mfg [facility] Repository (10 sources)CiprofloxacinDrug Cifeznm53-80-4670Xgvoyesyl of [facility] Medications Current Medications MedicationDrug Class(es)DatesSig (Normalized)Sig (Original)desogestrel 0.15 mg / ethinyl estradiol 0.03 mg oral tablet (8 sources)Progestin, EstrogenStart: 03-07-2025 End: 70-32-8388lobsudikrie-ethinyl estradiol (Apri) 0.15-30 MG-MCG tablet Indications: Dysfunctional uterine bleeding Take 1 tablet by mouth Daily 84 tablet 3 06/28/2025 09/20/2025 Activeibuprofen 800 mg oral tablet (10 sources)Nonsteroidal Anti-inflammatory DrugStart: 23-97-0525nedwaplhi 800 MG tablet Take 800 mg by mouth if needed 01/11/2025 Activelansoprazole 15 mg delayed release oral capsule (10 sources)Proton Pump Inhibitortake 2 capsules by mouth before mealtime lansoprazole (Prevacid) [address] capsule Take 30 mg by mouth in the morning. Take before meals. Jqlwtz02 hr metFORMIN hydrochloride 500 mg extended release oral tablet (5 sources)BiguanideStart: 06-28-2025 End: 70-90-8198debg 1 tablet by mouth every twenty-four hours at mealtime metFORMIN XR (Glucophage-XR) 500 MG 24 hr tablet Indications: PCOS (polycystic ovarian syndrome) TAKE 1 TABLET BY MOUTH IN THE EVENING WITH MEALS 90 tablet 1 07/25/2025 Active Completed/Discontinued Medications MedicationDrug Class(es)DatesSig (Normalized)Sig (Original)Ethinyl Estradiol / Ferrous fumarate / Norethindrone (10 sources)EstrogenStart: 02-22-2025 End: 48-71-8295ejyptkhxbdjce-ethinyl estradiol (11/29) 1-20 MG-MCG tablet Indications: Cyst of left ovary , Irregular bleeding Take 1 tablet by mouth Daily 28 tablet 11 02/22/2025 08/11/2025 Discontinued (Therapy completed) Start: 02-22-2025 End: 82-82-8653dfxsusmmfbscx-ethinyl estradiol (11/29) 1-20 MG-MCG tablet Indications: Cyst of left ovary , Irregular bleeding Take 1 tablet by mouth Daily 28 tablet 11 02/22/2025 02/22/2026 ActiveEthinyl Estradiol / norgestimate (2 sources)Progestin, EstrogenStart: 12-16-2024 End: 24-94-0726xfqs 1 tablet by mouth once dailynorgestimate-ethinyl estradiol (Ortho Tri-Cyclen,Trinessa) 0.18/0.215/0.25 MG-35 MCG tablet Take 1 tablet by mouth Daily 12/16/2024 02/22/2025 Discontinued (Ineffective) Problems Active Problems Problem ClassificationProblemDateDocumented DateEpisodic/ChronicAbdominal pain (4 sources)Pain in female pelvis; Translations: [Pelvic and perineal pain] 99-39-5962YasmcunyQueggpdkjsyyda/social admission (2 sources)Patient encounter status; Translations: [Person consulting for explanation of examination or test findings]30-83-5030PmkzzmnzWxqpvsree disorders (2 sources)Irregular periods; Translations: [Irregular menstruation, unspecified]61-68-5306KetklgtYtbxlxe cyst (2 sources)Cyst of left ovary; Translations: [Unspecified ovarian cyst, left side]12-38-1014WmzykfjpDjnsxkoldsyc (3 sources)COUGH, UNSPECIFIED; Translations: [COUGH, UNSPECIFIED]Onset: 11-02-8864Xygutdlfcyue (3 sources)CONTACT W/AND (SUSP) EXPOS COVID-19; Translations: [CONTACT W/AND (SUSP) EXPOS COVID-19]Onset: 61-95-4193Wvecv infection (1 source)COVID-19; Translations: [COVID-19]Onset: 11-08-2021 Past or Other Problems Problem ClassificationProblemDateDocumented DateEpisodic/ChronicOther upper respiratory infections (5 sources)Acute sinusitis, unspecified; Translations: [ACUTE SINUSITIS UNSPECIFIED]Onset: 86-67-8909TfqzqtspXtndcizneywr (1 source)COUGH, UNSPECIFIED; Translations: [COUGH, UNSPECIFIED]Onset: 11-22-7366Ipfiyeogbxyf (1 source)CONTACT W/AND (SUSP) EXPOS COVID-19; Translations: [CONTACT W/AND (SUSP) EXPOS COVID-19]Onset: 11-01-2021 Results Test NameValueInterpretationReference RangeFacilityHCG ( test) Ql (U)on 05-86-3619Jclcatnzhqirrd and review of laboratory resultsNormalNOMS Healthcare Preg Test, UrNegativeNegativeNOMS HealthcareNOMS HealthcareUrinalysis macro (dipstick) panel (U)on 14-89-3482Xcwkxhkct, UANegativeNegative - 4(70) +++ mg/dL [facility] HealthcareBlood, UANegativeNegative - 50 Papo/mcLNOMS HealthcareClarity, UA ClearNOMS HealthcareColor, UAYellowNOMS HealthcareGlucose, UANegativeNegative - 2000(110) ++++ mg/dLNOMS HealthcareInterpretation and review of laboratory resultsNormalNOMS HealthcareKetones, UANegativeNegative - 160(16) ++++ mg/dLNOMS HealthcareLeukocytes, UANegativeNegative - 500+++ Dixie/mcLNOMS HealthcareNitrite, UANegativeNegative - PositiveNOMS HealthcarepH, UA5.55 - 9[facility] Protein, UANegativeNegative - 1999(20) ++++ mg/dLNOMS HealthcareSpec Grav, UA 1.0251 - 1.03NOMS HealthcareUrobilinogen, UA1.00.2 - 12 mg/dLNOMS HealthcareNOMS HealthcareUS PELVIS TRANSVAGINALon 55-49-1937[place] [address] Ultrasound Report Signed Patient: JUDAH CHAVEZ MR#: [id number] : 1990 Acct:[id number] Age/Sex: 35 / F ADM Date: 08/05/25 Loc: US Attending Dr: Hannah Shannon D.O. Ordering Physician: Hannah Shannon D.O. Date of Service: 08/05/25 Procedure(s): US pelvis transvaginal Accession Number(s): [id number] cc: Hannah Shannon D.O.; Shade Lerner NP [place] [address] Patient Name: JUDAH CHAVEZ MRN: [id number] date: 1990 Sex: F Assigned Patient Location: US Current Patient Location: US Accession/Order Number: [id number] Exam Date: 08/05/2025 19:04 Report Date: 08/05/2025 20:23 At the request of: HANNAH SHANNON DO Procedure: US pelvis transvaginal Transvaginal pelvic ultrasound INDICATION: Pelvic pain for 4 days COMPARISON: 01/17/2025 FINDINGS: Anteverted uterus measuring 9.5 x 4.9 x 6.0 cm. Endometrial thickness measures 8.2 mm which is normal. Right ovary not visualized. Obscured by bowel gas. Left ovary measures 5.1 x 3.3 x 5.1 cm. Complex cyst involving left ovary 4.9 x 3.0 x 4.3 cm in size with internal septations noted. No increased vascularity or soft tissue component identified. US/US pelvis transvaginal IMPRESSION: Mildly complex left ovarian cyst with septae noted measuring 4.9 cm in size. This is most likely physiologic finding. Recommend ultrasound follow-up Impression dictated by: Subhash Christie M.D. 08/05/2025 8:23 PM Dictation Location: [place] [address] Electronically authenticated by: [id number] Y Date: 08/05/2025 20:23 Dictated By: Subhash Christie M.D. Signed By: 08/05/252024 DD/ 22 TD/TT: Food And Drug Inspector:TBHRadiology, Radiologist, MD - 08/05/2025 [place] [address] Ultrasound Report Signed Patient: JUDAH CHAVEZ MR#: [id number] : 1990 Acct:[id number] Age/Sex: 35 / F ADM Date: 08/05/25 Loc: US Attending Dr: Hannah Shannon D.O. Ordering Physician: Hannah Shannon D.O. Date of Service: 08/05/25 Procedure(s): US pelvis transvaginal Accession Number(s): [id number] cc: Hannah Shannon D.O.; Shade Lerner NP The [address] [address] Patient Name: JUDAH CHAVEZ MRN: [id number] date: 1990 Sex: F Assigned Patient Location: US Current Patient Location: US Accession/Order Number: [id number] Exam Date: 08/05/2025 19:04 Report Date: 08/05/2025 20:23 At the request of: HANNAH SHANNON DO Procedure: US pelvis transvaginal Transvaginal pelvic ultrasound INDICATION: Pelvic pain for 4 days COMPARISON: 01/17/2025 FINDINGS: Anteverted uterus measuring 9.5 x 4.9 x 6.0 cm. Endometrial thickness measures 8.2 mm which is normal. Right ovary not visualized. Obscured by bowel gas. Left ovary measures 5.1 x 3.3 x 5.1 cm. Complex cyst involving left ovary 4.9 x 3.0 x 4.3 cm in size with internal septations noted. No increased vascularity or soft tissue component identified. US/US pelvis transvaginal IMPRESSION: Mildly complex left ovarian cyst with septae noted measuring 4.9 cm in size. This is most likely physiologic finding. Recommend ultrasound follow-up Impression dictated by: Subhash Christie M.D. 08/05/2025 8:23 PM Dictation Location: [place] [address] Electronically authenticated by: [id number] Y Date: 08/05/2025 20:23 Dictated By: Subhash Christie M.D. Signed By: 08/05/252024 DD/ 22 TD/TT: Food And Drug Inspector: TIMOTHY HealthcareRadiology Study observation (narrative)TIMOTHY HealthcareUS PELVIS TRANSVAGINALOrdered By: Radiologist Radiology on 40-73-3969MPJU Healthcare Work Phone: ambulatory Visit Summaryon 22-16-5353Fcubdbymco Visit SummaryAmbulatory Visit Summary JUDAH CHAVEZ :1990 Visit Date:08/04/2025 [...] 153 gm, 0 Refill(s), BRUSH FOR 2 MINUTESAT BEDTIME AFTER USE SPIT OUT DO NOT EAT/ DRINK/ RINSE FOR 30 MINUTES Unchanged ibuprofen (ibuprofen 800 mg Tab) See instructions TAKE 1 TABLET BY MOUTH FOUR TIMES A DAYAS NEEDED Unchanged lansoprazole (lansoprazole 30 mg Cap-DR) [...] signed up for this yet, please contact [employer] at [phone] to get signed up today. Language Information Language assistance services are available as needed. [facility] HospitalFanew [facility] Medicine Office/Clinic Noteon 04-05-6480Uqakcp Medicine Office/Clinic NoteFami Medicine Office/Clinic Note HPI Staff Pt is [...] cyst Vaginal US done in 01/17/25 @ [facility] Seen Audra Marina in June had a pap... NORMAL She was advised to get another us pelvis by Mirtha but she had to pay 600 dollars for the first one,she did not have money at that time [...] day(s), # 40 tab(s), Refills(s) 0, Pharmacy: [facility]/pharmacy #[id number], 180.3, cm, 08/04/25 10:49:00 EDT, Height/Length Dosing, 114, kg, 08/04/25 10:49:00 EDT,Weight Dosing ondansetron, 4 mg = 1 tab(s), Oral, q6hr, PRN Nausea/Vomiting, # 15 tab(s), Refills(s) 0, Pharmacy:[facility]/pharmacy #[id number], 180.3, cm, 08/04/25 10:49:00 EDT, Height/Length Dosing, 114, kg, 08/04/25 10:49:00 EDT, Weight Dosing 2. Abdominal cramping (R10.9: Unspecified abdominal pain) pt c/o some abdominal cramping with bloating and soft stools that comes and goes. will send in bentyl. after she is cleared by OBGYN she will return to office for GI referral. RTC after cleared by STITCH BONDING MACHINE TENDER Ordered: dicyclomine, 20 mg = 1 tab(s), Oral, QID, X 10 day(s), # 40 tab(s), Refills(s) 0, Pharmacy: [facility]/pharmacy #[id number], 180.3, cm, 08/04/25 10:49:00 EDT, Height/Length Dosing, 114, kg, 08/04/25 10:49:00 EDT,Weight Dosing ondansetron, 4 mg = 1 tab(s), Oral, q6hr, PRN Nausea/Vomiting, # 15 tab(s), Refills(s) 0, [id number] 180.3, cm, 08/04/25 10:49:00 EDT, Height/Length Dosing, 114, kg, 08/04/25 10:49:00 EDT, Weight Dosing 3. Nausea (R11.0: Nausea) pt c/o nausea that comes and goes as well. will send in zofran Ordered: ondansetron, 4 mg = 1 tab(s), Oral, q6hr, PRN Nausea/Vomiting, # 15 tab(s), Refills(s) 0, [id number], 180.3, cm, 08/04/25 10:49:00 EDT, Height/Length [...] 2023-07-30: TPVAL influenza, unspecified formulation 09/27/2020 Recorded measles/mumps/rubella virus vaccine 03/23/2002 Recorded DTaP, unspecified formulation 04/02/1995 Recorded measles/mumps/rubella virus vaccine 10/20/1991 RecordedSheltering Arms HospitalComment on above:Result Comment: Electronically Signed By: Eula Hawley\Date and Time Signed: 08/04/25 11:15 EDTIGP,APTIMA HPV,AGE GDLN on 36-14-6521CVA GDLN ACOG TESTINGNote.NOMS HealthcareComment on above:TESTS RESULT FLAG UNITS REF RANGE LAB Clinician Provided Cytology Information Source.............Cervix No. of containers..01 ThinPrep Vial Age Algo ACOG Dee... 30-65 FLAG LEGEND: L-Low Normal,H-High Normal,LL-Alert Low,HH-Alert High <-Panic Low,>-Panic High,A-Abnormal,AA-Critical Abnormal Performed at: 01 =G [address] [place] [address] Bhavna Mathews MD, HPV APTIMANegativeNegativeNOMS HealthcareComment on above:This nucleic acid amplification test detects fourteen high- risk HPV types (16,18,31,33,35,39,45,51,52,56,58,59,66,68) without differentiation. Performed at: =G - [facility] [id number] Special Agent: Bhavna Mathews MD, Phone: [phone] Performed at: [address], [place] [id number] Special Agent: Bhavna Mathews MD, Phone: [phone] IGP, APTIMA HPV, RFX 16/18,45Note.NOMS HealthcareComment on above:TESTS RESULT FLAG UNITS REF RANGE LAB DIAGNOSIS: 02 NEGATIVE FOR INTRAEPITHELIAL LESION OR MALIGNANCY. Specimen adequacy: 02 Satisfactory for evaluation. Endocervical and/or squamous metaplastic cells (endocervical component) are present. Performed by: Carolyne Dinh Administrative Liaison ([facility]) . 02 Note: Note 02 The Pap [...] <-Panic Low,>-Panic High,A-Abnormal,AA-Critical Abnormal Performed at: [address] [address] Bhavna Mathews MD, BRUSH-SPATULA CERVIX CLINISYNCNOMS HealthcareUrinalysis macro (dipstick) panel (U)on 02-22-2025 Bilirubin, UANegativeNegative - 4(70) +++ mg/dLNOMS HealthcareBlood, UANegative Negative - 50 Papo/mcLNOMS HealthcareClarity, UAClearNOMS HealthcareColor, UA YellowNOMS HealthcareGlucose, UANegativeNegative - 2000(110) ++++ mg/dLNOMS HealthcareInterpretation and review of laboratory resultsAbnormalNOMS Healthcare Ketones, UAPositiveNegative - 160(16) ++++ mg/dLNOMS HealthcareComment on above: traceLeukocytes, UANegativeNegative - 500+++ Dixie/mcLNOMS HealthcareNitrite, UA NegativeNegative - PositiveNOMS HealthcarepH, UA5.55 - 9NOMS HealthcareProtein, UANegativeNegative - 2000(20) ++++ mg/dLNOMS HealthcareSpec Grav, UA1.0251 - 1.03NOMS HealthcareUrobilinogen, UA1.00.2 - 12 mg/dLNOMS HealthcareNOMS HealthcareFamily Medicine Office/Clinic Noteon 85-81-3724Cgjrks Medicine Office/Clinic NoteFami Medicine Office/Clinic Note Chief Complaint Persistent abdominal pain rated at 3 on a scale of 0 to 10. HPI Staff Judah is a 34 year old female stomach pain and discomfort Onset: Friday, middle of the night she was waken by cramps... off and on No loss of appetite BM are normal pain less painful when sitting worse when standing, pain in lowerback She took Motrin did not help History [...] Urnls Dip Stick Auto w/o Microscopy POC 49908 US Pelvis Non-OB Complete 3. Non-smoker (Z78.9: [...] Medications Denta 5000 Plus topical cream ethinyl estradiol-norgestimate triphasic 35 mcg Tab, See Instructions hydrOXYzine [...] 2023-07-30: TPVAL influenza, unspecified formulation 09/27/2020 Recorded measles/mumps/rubella virus vaccine 03/23/2002 Recorded DTaP, unspecified formulation 04/02/1995 Recorded measles/mumps/rubella virus vaccine 10/20/1991 Recorded Lab Results Ambulatory Point of Care Results Bilirubin Urine Dipstick: Negative (01/13/25 15:59:00) Blood Urine Dipstick: Negative (01/13/25 15:59:00) Glucose Urine Dipstick: Negative (01/13/25 15:59:00) Ketones Urine Dipstick: Negative (01/13/25 15:59:00) Leukocytes Urine Dipstick: Negative (01/13/25 15:59:00) Nitrite Urine Dipstick: Negative (01/13/25 15:59:00) Protein Urine Dipstick: 1+ (30 mg/dl) (01/13/25 15:59:00) Specific [place] Urine D (more content not included)...NormalFisher Western Maryland Hospital CenterComment on above:Result Comment: Electronically Signed By: SHADE LERNER CNP\guillermo\Date and Time Signed: 01/13/25 16:23 ESTCovid-19 PCR (CVDTBH) on 09-81-6737QNRC-CoV-2 (COVID-19) RNA ENRIQUE+probe Ql (Unsp spec)Not detected NormalNOT DETECTEDThe [facility]c Medical CenterComment on above:Result Comment: When diagnostic testing is negative, the possibility of a false negative should be c onsidered in the context of a patient's recent [...] for this test is supported by the Bow String Maker of Health and Human Service's declaration that circumstances exist to justify the emergency use of in vitro diagnostics for the detection and/or diagnosis of the virus that causes COVID-19. This EUA will remain in effect for the duration of the COVID-19 declaration justifying emergency of IVDs, unless it is terminated or revoked by the FDA (after which the test may no longer be used).Performed By: #### CVDTBH #### [facility] [address] [place] [address] Dr. Aster BlackCovid-19 PCR (CVDTBH)on 33-34-5272VJRF-CoV-2 (COVID-19) RNA ENRIQUE+probe Ql (Unsp spec)Not detectedNormalNOT DETECTEDThe [facility] Comment on above:Result Comment: When diagnostic testing is negative, the [...] for this test is supported by the Bow String Maker of Health and Human Service's declaration that circumstances exist to justify the emergency use of in vitro diagnostics for the detection and/or diagnosis of the virus that causes COVID-19. This EUA will remain in effect for the duration of the COVID-19 declaration justifying emergency of IVDs, unless it is terminated or revoked by the FDA (after which the test may no longer be used).Performed By: #### CVDTBH #### [place] [address] Dr. Aster Nicole AND B [facility] 30-83-6094TNJLCVNOCGAXCHolmes County [facility] on above:Result Comment: Negative for Flu A protein angiten. Infection due to Flu A cannot be ruled out. FluA angiten in the sample may be below the detection limit of the test.Performed By: #### INFLUAB #### [facility] [address] [place] [address] Dr. Aster MabryUBNEGLIZ [facility] on above: Result Comment: Negative for Flu B protein antigen. Infection due to Flu B cannot be ruled out. FluB antigen in the sample may be below the detection limit of the test.Performed By: #### INFLUAB #### [facility] [address] [place] [address] Dr. Aster Nicole AGNegativeNormalNEGATIVE SEE COMMENTThe [facility] on above:Performed By: #### INFLUAB #### [facility] [address] [place] [address] Dr. Aster Burns AGNegativeNormalNEGATIVE SEE COMMENTThe [facility] on above:Performed By: #### INFLUAB #### [facility] [address] [place] [address] Dr. Aster BlackINTERNAL CONTROLSWithin Normal LimitsNormalWithin Normal Limits [facility] on above:Performed By: #### INFLUAB #### [facility] [address] [place] [address] Dr. Aster Mendoza-19 PCR ([facility]VD[facility])on 78-51-3809UHLM-CoV-2 (COVID-19) RNA ENRIQUE+probe Ql (Unsp spec)DetectedCritically abnormalNOT DETECTEDThe [facility] on above:Result Comment: This test is not yet approved or cleared by the [place] FDA. When there are no FDA-approved or cleared tests available, and other criteria are met, FDA can make tests available under an emergency access mechanism called an Emergency Use Authorization (EUA). The EUA for this test is supported by the [place]ckerly of Health and Human Service's (HHS's) declaration [...] no longer be used). Performed By: #### CVDTBH #### [facility] [address] [place] [address] Dr. Aster Nicole AND B AGon 72-51-9716XMWAIQDRBQGVBGeorgetown Behavioral Hospital on above:Result Comment: Negative for Flu A protein angiten. Infection due to Flu A cannot be ruled out. FluA angiten in the sample may be below the detection limit of the test.Performed By: #### INFLUAB #### [facility] [address] [place] [address] Dr. Aster MabryUBNEGLIZ [facility] on above: Result Comment: Negative for Flu B protein antigen. Infection due to Flu B cannot be ruled out. FluB antigen in the sample may be below the detection limit of the test.Performed By: #### INFLUAB #### [facility] [address] [place] [address] Dr. Yilan ChangINFLUENZA A AGNegativeNormalNEGATIVE SEE COMMENTThe [facility] Medical CenterComment on above:Performed By: #### INFLUAB #### [facility] [address] [place] [address] [address] Aster BlackINFLUENZA B AGNegativeNormalNEGATIVE SEE COMMENTThe [facility] Medical CenterComment on above:Performed By: #### INFLUAB #### [facility] [address] [place] [address] [address] Aster BlackINTERNAL CONTROLSWithin Normal LimitsNormalWithin Normal Limits The [facility] Medical CenterComment on above:Performed By: #### INFLUAB #### [facility] [address] [place] [address] [address] Aster Black Vital Signs Date TimeVital SignValuePerforming OtacpaqckZzkeklbd32-98-6827 14:34-0400Body gzzrza644.9 cmLiya Buckner WRITER TECHNICAL PUBLICATIONS Work Phone: [phone] [place], [place] [address]Clkirnhsvu49-11-1882 14:34-0400Body mass index (BMI) [Ratio]33.77 kg/k5YjuvcpaxLiya Buckner WRITER TECHNICAL PUBLICATIONS Work Phone: [phone]10-02-2025 14:34-0400Body .95 kgLiya Buckner WRITER TECHNICAL PUBLICATIONS Work Phone: [phone]10-02-2025 14:34-0400Diastolic blood bagcnndm44 mm[Hg]Liya Buckner WRITER TECHNICAL PUBLICATIONS Work Phone: [phone]10-02-2025 14:34-0400Systolic blood ojxksrgb795 mm[Hg]Liya Buckner WRITER TECHNICAL PUBLICATIONS Work Phone: [phone] [address]08-19-2025 14:30-0400Body qoskep930.4 kgAudra CAMPOS Work Phone: [phone] [place], [place] [address]Gnzvlxyosy51-87-3152 14:30-0400Diastolic blood pretfwll97 mm[Hg]Audra CAMPOS Work Phone: [phone] [place] [address]-19-2025 14:30-0400Systolic blood ausujdbq760 mm[Hg]Audra CAMPOS Work Phone: noSaint [facility] Health ServicesVjnnpptiqm59-73-5682 13:51-0400Body .22 kgCorey Mirtha DO Work Phone: no Alveiwaojk07-17-9918 13:51-0400Diastolic blood kumhvcsd59 mm[Hg]Hannah Mirtha DO Work Phone: noSaint [facility] & Health ServicesZmsfzneodn85-81-3114 13:51-0400Systolic blood deuuxuwz866 mm[Hg]Hannah Mirtha DO Work Phone: [facility] Encounters Encounter DateEncounter TypeCare ProviderFacilityStart: 08-11-2025 End: 63-78-9147Zjjshp Rick Buckner NP Work Phone: [facility] OBGYNStart: 08-11-2025 End: 40-75-1338Drzpiwmiguelangel Buckner NP Work Phone: [facility] OBGYNStart: 08-11-2025 End: 85-32-2895Lkveol outpatient visit 15 minutesLiya Buckner NP Work Phone: [facility] OBGYNComment on above:Pelvic pain in female; Encounter to discuss test resultsStart: 08-11-2025 End: 05-22-1168wcyuiekpkdJQUUAGDZ EBERLYNot AvailableStart: 08-05-2025 End: 16-21-6174Fxeefuonc Result EncounterCorey Mirtha DO Work Phone: noms External Department UnsolicitedStart: 08-05-2025 End: 25-37-1741Tjowqnujf Result EncounterCorey Mirtha DO Work Phone: noms External Department UnsolicitedStart: 08-04-2025 End: 35-34-1046jbpibirdsiCfne L SchwabFacility:FT FM BellevueStart: 06-28-2025 End: 74-67-5874Ihqqlx flowsheetAudra CAMPOS Work Phone: [facility] OBGYNStart: 06-28-2025 End: 31-34-4336Cacfbr flowsheetAudra CAMPOS Work Phone: NO [facility] OBGYNStart: 06-28-2025 End: 86-96-3802Apyapkipj Result EncounterAudra CAMPOS Work Phone: noms External Department UnsolicitedStart: 06-28-2025 End: 52-63-6337Fywycfk encounter procedureAudra Katelyn CAMPOS Work Phone: NO HealthcareStart: 06-28-2025 End: 92-75-8403Ymjhgirl preventive med est patient 18-39 yrsAudra Katelyn CAMPOS Work Phone: no [facility] OBGYNComment on above:Well woman exam with routine gynecological examStart: 06-28-2025 End: 98-66-2689esroppannzWLG Hailee AvailableStart: 02-22-2025 End: 92-14-0342Gnvgrk flowsheetCorey Mirtha DO Work Phone: noms BCP OBStart: 02-22-2025 End: 18-29-3218Kdmwhp flowsheetCorey Mirtha DO Work Phone: noms BCP OBStart: 02-22-2025 End: 03-05-5746Xehoof outpatient visit 15 minutesCorey Mirtha DO Work Phone: noms BCP OBComment on above:Pelvic pain in female; Cyst of left ovary; Irregular bleedingStart: 02-22-2025 End: 19-09-5243thwfolovpdEEGFZ FAZIONot AvailableStart: 01-13-2025 End: 60-25-1906vpmwbecjjaUOGQKL A LEHMANNFacility:FT FM BellevueStart: 08-26-2022 End: 80-98-1174oruxuliqyhIN STANFORD HOYFacility:F7Htpeq: 01-28-2022 End: 34-71-6018rnjxbhcwsiLQ [facility] HOYFacility:I0Algej: 11-01-2021 End: 00-65-5682rxlqchrprhDX [facility] HOYFacility:H1 Procedures DateProcedureProcedure DetailPerforming ClinicianStart: 08-11-2025 End: 65-49-2631Bplni dip stick/tablet rgnt non-auto w/o micrscPoonam Buckner NP Work Phone: Start: 95-60-6403KW PELVIS TRANSVAGINALCorey Mirtha DO Work Phone: Start: 87-77-1356WIZ,APTIMA HPV,AGE GDLNAmy Katelyn PA Work Phone: Start: 32-01-5176Neiuiblgjfa observation [Identifier] in Cervix by Cyto stainCorey Mirtha DO Work Phone: Start: 53-27-1641Nwsni dip stick/tablet rgnt non-auto w/o micrscpCorey Mirtha DO Work Phone: Plan of Treatment DateCare ActivityDetailAuthorStart: 95-49-5341Wojshrtzu for malignant neoplasm of cervixNOMS HealthcareStart: 09-28-2025 End: 61-46-2683Xwarxvc encounter ybqfmnzfi56/19/2025 3:50 PM EST Consult [facility] [address] [place] [address] Hannah Shannon DO [address] [place], [place] [address] [facility] OBGYNStart: 08-11-2025 End: 01-61-6507Cwbvkvm encounter rzysjtocw06/02/2025 2:00 PM EDT Office Visit [facility] [address] [place] [address] Liya Buckner NP [address] [place] [phone] [facility] Comment on above:ArrivedStart: 08-11-2025 End: 06-47-8341AX PelvisUS Pelvis w/ TV Imaging Routine Pelvic pain in female Expected: 08/11/2025, Expires: 02/09/2026[facility] Work Phone: comment on above:Expected: 08/11/2025, Expires: 02/09/2026Start: 07-27-2025 End: 95-45-1522Qkypgko encounter zzuzvhngs90/17/2025 9:30 AM EDT Office Visit [facility] [address] [address] Audra Riojas, PA [address] [place] [address] [facility] OBGYNStart: 07-11-2025 Influenza vaccinationSaint [facility]'s Hospital of Blue SpringsStart: 06-28-2025 End: 81-55-7438Cbibahj encounter tlfrilpoz39/19/2025 2:00 PM EDT Office Visit TIMOTHY CLAUDIO [address] [phone] Audra Riojas, PA [address] [place], [place] [phone] ArrivedTIMOTHY Blackmon OBGYNComment on above:ArrivedStart: 05-25-2025 End: 00-86-9216Luorgjh encounter ezoxrcoct83/16/2025 2:40 PM EDT Office Visit [facility] [address] [place] [phone] Hannah Shannon DO [address] [place], [place] [id number] [facility] BCP OBStart: 02-22-2025 End: 74-26-7032RZ Pelvis transvaginalUS pelvis transvaginal Imaging Routine Pelvic pain in female Cyst of left ovary Irregular bleeding Expected: 02/22/2025, Expires: 08/24/2025[facility] Work Phone: Comment on above:Expected: 02/22/2025, Expires: 08/24/2025Start: 02-22-2025 End: 60-88-5758Wiwtppl encounter wptozwhpw74/15/2025 1:40 PM EDT Office Visit [facility] [address] [address] MirthaHannah ospina, DO [address] [place] [address] ArrivedSCRIPPS [facility] OBComment on above:ArrivedStart: 59-19-8501Qjmgkzifw for malignant neoplasm of cervixNOMS HealthcareStart: 06-81-9377Ldcuovysf for malignant neoplasm of cervixPap SmearSaint Mary's Hospital [facility] Cytology Cervical or vaginal smear or scraping studyPap Smear Pathology and Cytology Routine Well woman exam with routine gynecological exam Ordered: [facility] Work Phone: comment on above:Ordered: 06/28/2025Human papilloma virus DNA [Presence] in Unspecified specimen by Probe with amplificationHPV DNA probe, amplified Microbiology Routine Well woman exam with routine gynecological exam Ordered: 06/28/2025[facility] SpringsComment on above:Ordered: 06/28/2025 Immunizations Immunization DateImmunizationNotesCare EadirnzvBebiwdwz88-93-3262flpkpwrzm virus vaccine, unspecified formulationCorey Mirtha DO Work Phone: [facility] Payers DatePayer CategoryPayerPolicy [id number] Care O (unspecified) [id number] [id number] 2.840.1.579362.3.[id number] 2.840.1.611147.[id number] 2.16.840.1.391119.3.57[id number] 2.16.840.1.381894.3.57[id number] 2.16.840.1.441446.3.57[id number] 2.16.840.1.611297.3.57[id number] 2.16.840.1.118979.3.579.2.988914-53-3932Sdgpspj Health [id number] Social History DateTypeDetailFacilityTobacco smoking status NHISTobacco smoking consumption unknownNOID HealthcareStart: 68-51-5481Odn assigned at birthNot on [facility]ryGender identityNot on [facility] History of Present illness Narrative 08-11-2025 Note Date & GffaAtseZautqxpf56-95-4369 History of Present illness Narrative* Liya Buckner, CHARLETTE - 08/11/2025 2:00 PM EDT Reason for Appointment: Patient ID: Judah Chavez is a 35 y.o. female who presents for Pelvic Pain (Pt present today for pelvic pain/US results) Patient presents today for Follow up appointment to discuss results. MEDICATIONS Current Outpatient Medications Medication Instructions desogestrel-ethinyl estradiol (Apri) 0.15-30 MG-MCG tablet 1 tablet, Oral, Daily ibuprofen 800 mg, As needed lansoprazole (PREVACID) 30 mg, Oral, Daily before breakfast metFORMIN XR (Glucophage-XR) 500 MG 24 hr tablet TAKE 1 TABLET BY MOUTH IN THE EVENING WITH MEALS ALLERGIES Allergies Allergen Reactions Ciprofloxacin Shortness of breath Other Reaction(s): Breathing control Other Reaction(s): Unknown PROBLEMS Active Ambulatory Problems Diagnosis Date Noted [...] Respiratory: Negative. Cardiovascular: Negative. Gastrointestinal: Negative. Genitourinary: Positive for pelvic pain. Musculoskeletal: Negative. Skin: Negative. Neurological: Negative. All [...] nursing note reviewed. Exam conducted with a water proofer present. Vitals: There is no height or weight on file to calculate BMI. BP: No LMP recorded. ASSESSMENT & PLAN ICD-10-CM 1. Pelvic pain in female R10.20 2. Encounter to discuss test results Z71.2 Patient with ultrasound completed on 08/05/25 with continued pelvic pain. Reviewed ultrasound with patient today. FINDINGS: Anteverted uterus measuring 9.5 x 4.9 x 6.0 cm. Endometrial thickness measures 8.2 mm which is normal. Right ovary not visualized. Obscured by bowel gas. Left ovary measures 5.1 x 3.3 x 5.1 cm. Complex cyst involving left ovary 4.9 x 3.0 x 4.3 cm in size with internal septations noted. No increased vascularity or soft tissue component identified. US/US pelvis transvaginal IMPRESSION: Mildly complex left ovarian cyst with septae noted measuring 4.9 cm in size. This is most likely physiologic finding. Recommend ultrasound follow-up Patient is afebrile and well appearing. She reports continued complaints of pain and discomfort to bilateral adnexa. She is managing pain with motrin. I discussed that the right ovary was not able son visualized. Plan will be to obtain repeat ultrasound and schedule patient for preop appointment for Diagnostic Lap given continued complaints of pain. She is advised that should pain increase or she develops fever, chills, nausea or vomiting she should present to the ED for further evaluation. Documented by Liya Buckner NP on behalf of: Liya Buckner NP documented in this encounterNOID Healthcare History of Present illness Narrative 06-28-2025 Note Date & IdbrPucnHkmmgnmz45-73-5527 History of Present illness Narrative* ANDRES Solano - 06/28/2025 2:00 PM EDT Reason for Appointment: Patient ID: Judah Chavez [...] nursing note reviewed. Exam conducted with a water proofer present. Vitals: There is no height or [...] behalf of: ANDRES Solano documented in this encounterNOMS Healthcare History of Present illness Narrative 02-22-2025 Note Date & TsjjDxkxOwmrysut15-06-1907 History of Present illness Narrative* Sadie Fraser LPN - 02/22/2025 1:40 PM EDT Reason for Appointment: Patient ID: Judah Chavez [...] nursing note reviewed. Exam conducted with a water proofer present. Vitals: There is no height or [...] of: Hannah Shannon DO documented in this encounterSaint [facility] Clinical Note 01-13-2025 Note Date & IbekBpgkOzezkfop74-25-0772 NotePatient Education Obstetrics and Gynecology Round Ligament Pain The round ligaments are a pair of cord-like tissues that help support the uterus. They can become asource of pain during as the ligaments soften [...] walks if they cause pain. ??? Take nadi-zcf-vrwhtkb and prescription medicines only as told by [...] similar to labor pains. Labor pains are usually2 minutes apart, last for about 1 minute, [...] side, or taking a warm bath may helpto get rid of the pain. ??? Contact your health care provider if the pain does not go away. This information is not intended to replace advice given to you by your health care provider. Make sure you discuss any questions you have with your health care provider. Document Revised: 01/09/2022 Document Reviewed: 01/09/2022 Elsevier Patient Education ? 2023 [employer] Evaluation note Note Date & TypeNoteFacilityEvaluation note* Diagnosis Pelvic pain in female Unspecified symptom associated with female genital organs Cyst of left ovary Other and unspecified ovarian cyst Irregular bleeding Irregular menstrual cycle documented in this encounter [facility] Evaluation note Note Date & TypeNoteFacilityEvaluation note* Diagnosis Well woman exam with routine gynecological exam Routine gynecological examination documented in this encounter [facility] Evaluation note Note Date & TypeNoteFacilityEvaluation note* Diagnosis Pelvic pain in female Unspecified symptom associated with female genital organs Encounter to discuss test results Other specified counseling documented in this encounter [facility] Summary Purpose Family History No Family History Records FoundNo Family History Records FoundNo Family History Records Found Advance Directives No Advanced Directives Records FoundNo Advanced Directives Records FoundNo Advanced Directives Records Found Additional Source Comments INFORMATION SOURCE (unrecogn ized section and content) DATE CREATED AUTHOR 08/31/2022 [facility] DATE CREATED AUTHOR AUTHOR'S ORGANIZ ATION 08/05/2025 [facility] DATE CREATED AUTHOR AUTHOR'S ORGANIZ ATION 08/16/2025 [facility] EPIC Reason for Visit (unrecogniz ed section and content) ReasonCommentsPelvic PainOvarian CystReasonCommentsGynecologic ExamReason CommentsPelvic PainPt present today for pelvic pain/US results FOR RECORDS PERTAINING TO PATIENTS WHO ARE [...] BE BASED ON THE PRIMARY CLINICAL RECORDS. [facility] [employer] [facility]. provides no warranty or guarantee of the accuracy or completeness of information in this document.
--- NOTE | 2025-08-31 16:59 | US_ITS ---
[address] [address] Patient Name: JUDAH CHO MRN: [id number] date: 1990 Sex: F Assigned Patient Location: US Current Patient Location: US Accession/Order Number: [id number] Exam Date: 08/31/2025 17:33 Report Date: 10/04/2025 14:46 At the request of: GABRIEL BOBO Procedure: US pelvis w/ transvaginal Transvaginal pelvic ultrasound INDICATION: Pelvic pain for one month COMPARISON: 08/05/2025 FINDINGS: Anteverted uterus measuring 8.5 x 4.5 x 5.7 cm . Endometrial thickness measures 5.3 mm which is normal. Right ovary unremarkable 3.5 x 2.2 x 2.5 cm. Right ovarian cyst 2.6 x 1.5 x 1.9 cm. Left ovary measures 3.3 x 2.3 x 2.9 cm. Cyst involving left ovary 2.5 x 1.4 x 2.4 cm. US/US pelvis w/ transvaginal IMPRESSION: Physiologic findings identified. Impression dictated by: Subhash Christie M.D. 10/04/2025 2:46 PM Dictation Location: [place] [address] Electronically authenticated by: [id number] Y Date: 10/04/2025 14:46
== END 2025-08-31 12:15 | disposition home or self-care (01) ==
LOC: US 12:14
PROVIDERS: PCP Nurse Practitioner Family; Visit Provider Nurse Practitioner Family
DX: R10.30 Lower abdominal pain, unspecified (principal)
CPT/HCPCS: 76830; 76856